=== PATIENT | male | born 1950 | race Caucasian/White ===

== ENCOUNTER 2017-12-02 00:22 | Inpatient (IN) | payer MEDICARE ==
[2017-12-02] VITALS (10 sets, daily range): BP systolic 79–148; BP diastolic 45–93
[~2017-12-02] VITALS: Ht 177.8 cm; Wt 73.0 kg
[~2017-12-02 00:22] MED LIST: ALDACTONE25 MG PO; ALTACE10 M1 PO; CIPROFLOXACIN500 M1 PO; HYDROCODONE-AP1 EAC6 PO; IMDUR 30 MG TAB30 M1 PO; LISINOPRIL20 MG PO; LOPRESSOR 50 MG50 M1 PO; PLAVIX 75 MG TA75 M1 PO; PLAVIX 75 MG TA75 MG PO; TOPROL XL50 MG PO
[2017-12-02] MEDS ORDERED: PACERONE 200 M200 M1 PO (00:37)
[2017-12-02] MEDS ORDERED: LISINOPRIL10 MG PO (00:37)
[2017-12-02] MEDS ORDERED: LASIX 20 MG TAB20 MG PO (00:37)
[2017-12-02] MEDS ORDERED: BAYER CHEWABLE81 MG PO (00:37)
[2017-12-02] MEDS ORDERED: KLOR-CON 1010 MEQ PO (00:38)
[2017-12-02] MEDS ORDERED: TOPROL XL25 MG PO (00:38)
[2017-12-02] MEDS ORDERED: CLARITIN10 MG PO (00:38)
[2017-12-02] MEDS ORDERED: BRILINTA90 MG PO (00:39)
[2017-12-02] MEDS ORDERED: VITAMIN B-1100 M1 PO (00:39)
[2017-12-02] MEDS ORDERED: Aldactone 25 MG PO (00:39)
[2017-12-02] MEDS ORDERED: CRESTOR20 MG PO (00:40)
[2017-12-02 01:00] LABS: URINE BILIRUBIN NEGATIVE (Negative); URINE BLOOD NEGATIVE (Negative); URINE CLARITY CLEAR; URINE COLOR YELLOW; URINE GLUCOSE-RANDOM NEGATIVE (Negative); URINE KETONES NEGATIVE (Negative); URINE LEUKOCYTES-REFLEX NEGATIVE (Negative); URINE NITRITE-REFLEX NEGATIVE (Negative); URINE PROTEIN NEGATIVE (Negative); URINE UROBILINOGEN 0.2 E.U./dl (0.2-1.0)
[2017-12-02 01:03] LABS: ABSOLUTE BASOPHILS 0.1 thou/uL (0.0-0.2); ABSOLUTE EOSINOPHILS 0.2 thou/uL (0.0-0.7); ABSOLUTE LYMPHOCYTES 2.1 thou/uL (0.8-5.3); ABSOLUTE MONOCYTES 0.4 thou/uL (0.0-1.2); ABSOLUTE NEUTROPHILS 5.7 thou/uL (1.6-8.1); BASOPHILS 0.8 %; EOSINOPHILS 2.3 %; HEMATOCRIT 33.3 % (42.0-52.0); HEMOGLOBIN 10.3 gm/dL (14.0-18.0); LYMPHOCYTES 24.8 %; MCH 29.7 pg (26.0-34.0); MCV 95.7 fL (80.0-100.0); MONOCYTES 5.1 %; MPV 7.7 fl. (7.2-11.1); NUCLEATED RBCS 0 /100WBC; PLATELET COUNT* 298 thou/uL (150-400); RBC 3.48 mil/uL (4.50-6.00); RDW-CV 18.1 % (10.5-14.5); WBC 8.6 thou/uL (4.0-11.0)
[2017-12-02 01:09] LABS: ANION GAP 14 mmol/L (7-16); BUN 29 mg/dL (7-18); CALCIUM 9.2 mg/dL (8.5-10.1); CHLORIDE 102 mmol/L (98-107); CO2 21 mmol/L (21-32); CREATININE 1.8 mg/dL (0.6-1.3); GLUCOSE 258 mg/dL (70-99); POTASSIUM 4.4 mmol/L (3.5-5.1); SODIUM 137 mmol/L (136-145)
[2017-12-02 01:12] LABS: INR 1.2; PROTIME 11.4 Seconds (9.20-11.50)
[2017-12-02 01:20] LABS: ALBUMIN 3.6 g/dL (3.4-5.0); ALKALINE PHOSPHATASE 141 U/L (46-116); NT-PRO BRAIN NAT PEPTIDE 10570 pg/mL (<300); SGOT 25 U/L (15-37); SGPT 31 U/L (30-65); TOTAL BILIRUBIN 0.4 mg/dL (<0.1-1.0); TOTAL PROTEIN 8.1 g/dL (6.4-8.2); TROPONIN-I LEVEL <0.06 ng/mL (<0.06)
[2017-12-02 02:21] LABS: BE -7.7 mmol/L (-2 to +3); HCO3 18.1 mmol/L (22.0-26.0); PCO2 37.8 mmHg (35.0-45.0); PO2 94.1 mmHg (75.0-100.0)
[2017-12-02 02:24] LABS: pH 7.297 (7.340-7.450)
[2017-12-02 09:15] LABS: HEMOGLOBIN 9.4 gm/dL (14.0-18.0); MCH 29.6 pg (26.0-34.0); MCHC 32.4 g/dL (28.0-37.0); MCV 91.4 fL (80.0-100.0); MPV 7.4 fl. (7.2-11.1); RBC 3.18 mil/uL (4.50-6.00); RDW-CV 17.9 % (10.5-14.5); WBC 12.9 thou/uL (4.0-11.0)
[2017-12-02 09:43] LABS: ALBUMIN 2.8 g/dL (3.4-5.0); CALCIUM 8.9 mg/dL (8.5-10.1); CREATININE 1.4 mg/dL (0.6-1.3); POTASSIUM 4.5 mmol/L (3.5-5.1); TOTAL BILIRUBIN 0.4 mg/dL (<0.1-1.0); TOTAL PROTEIN 6.2 g/dL (6.4-8.2)
--- NOTE | 2017-12-02 15:42 | 2DMMODE ---
[place] [address] 2 D/M-MODE ECHOCARDIOGRAM Name: FERMÍNLYUDMILA Room: [facility] IN [facility]#: [id number] Admission: 12/02/17 Attend Phys: Alireza Ma, Discharge: Date of : 54 Date of Service: 12/02/17 1542 Report #: [id number] THIS REPORT FOR: //name// APPROVED REPORT Study performed: 12/02/2017 09:53:41 EXAM: Comprehensive 2D, Doppler, and color-flow Echocardiogram Patient Location: In-Patient Room #: [facility] Status: routine BSA: 1.91 HR: 67 bpm BP: 135/83 mmHg Rhythm: NSR Other Information Study Quality: Good Indications Congestive Heart Failure Dyspnea 2D Dimensions LVEF(%): 17.60 (>50%) IVSd: 9.92 (7-11mm) LVOT Diam: 19.44 (18-24mm) LVDd: 63.12 mm PWd: 9.31 (7-11mm) LVDs: 57.99 (25-40mm) Aortic Root: 31.32 mm Bolden's LVEF: 17.60 % Volumes Left Atrial Volume (Systole) LA ESV Index: 43.00 mL/m2 Aortic Valve AoV Peak Sonu.: 1.08 m/s AO Peak Gr.: 4.63 mmHg LVOT Max P.70 mmHg AO Mean Gr.: 2.51 mmHg LVOT Mean P.20 mmHg LVOT Max V: 0.82 m/s AO V2 VTI: 17.92 cm LVOT Mean V: 0.50 m/s ANUJ (VTI): 2.14 cm2 LVOT V1 VTI: 12.92 [place] [address] 2 D/M-MODE ECHOCARDIOGRAM Name: LYUDMILA KOVACS Room: [address] IN .R.#: [id number] Admission: 12/02/17 Attend Phys: Alireza Ma, Discharge: Date of : 54 Date of Service: 12/02/17 1542 Report #: [id number] E/A Ratio: 1.60 MV Decel. Time: 200.98 ms MV E Max Sonu.: 0.68 m/s MV PHT: 58.28 ms MVA (PHT): 3.77 cm2 TDI E/Lateral E': 8.50 E/Medial E': 13.60 Medial E' Sonu.: 0.05 m/s Lateral E' Sonu.: 0.08 m/s Pulmonary Valve PV Peak Sonu.: 0.93 m/s PV Peak Gr.: 3.47 mmHg Tricuspid Valve TR Peak Gr.: 25.48 mmHg RVSP: 30.00 mmHg Left Ventricle Left ventricle is moderately dilated. There is severe global hypokinesis of the left ventricle. There is normal left ventricular wall thickness. Left ventricular systolic function is severely decreased. LVEF is 20-25%. Right Ventricle The right ventricle is normal size. The right ventricular systolic function is normal. Pacemaker lead is present in the right ventricle. Atria Left atrium is mildly dilated. The right atrium size is normal. Aortic Valve The aortic valve is normal in structure. No aortic regurgitation is present. There is no aortic valvular stenosis. Mitral Valve The mitral valve is normal in structure. Trace mitral regurgitation. No evidence of mitral valve stenosis. Tricuspid Valve The tricuspid valve is normal in structure. Mild tricuspid regurgitation. The RVSP is 30-35 mmHg. Pulmonic Valve The pulmonary valve is normal in structure. There is no pulmonic [place] [address] 2 D/M-MODE ECHOCARDIOGRAM Name: LYUDMILA KOVACS Room: [address] IN [facility]#: [id number] Admission: 12/02/17 Attend Phys: Alireza Ma, Discharge: Date of : 54 Date of Service: 12/02/17 1542 Report #: [id number] Great Vessels The aortic root is normal in size. IVC is normal in size and collapses with >50% inspiration Pericardium There is no pericardial effusion. <Conclusion> Left ventricle is moderately dilated. There is normal left ventricular wall thickness. Left ventricular systolic function is severely decreased. LVEF is 20-25%. The right ventricle is normal size. Left atrium is mildly dilated. The right atrium size is normal. The aortic valve is normal in structure. The mitral valve is normal in structure. Trace mitral regurgitation. The tricuspid valve is normal in structure. Mild tricuspid regurgitation. The RVSP is 30-35 mmHg. IVC is normal in size and collapses with >50% inspiration There is no pericardial effusion. There is severe global hypokinesis of the left ventricle. Pacemaker lead is present in the right ventricle. <ELECTRONICALLY SIGNED> By: Felix Han MD, FACC 12/02/17 1542 [id number] Felix Han MD, FACC /INF
--- NOTE | 2017-12-02 17:06 | EKG ---
[place] [address] ELECTROCARDIOGRAM REPORT Name: FERMÍN,LYUDMILA Heath Room: [address] ADM IN M.R.#: [id number] Admission: 12/02/17 Attend Phys: Alireza Ma MD Discharge: Date of : 54 Report #: [id number] THIS REPORT FOR: //name// [facility] ED Test Date: 2017-12-02 Test Time: 00:52:08 Pat Name: LYUDMILA KOVACS Department: Room: [facility] Gender: M [employer]: DEJAH : 1950 Requested By: Jenna De Leon Order Number: [id number] MD: Felix Han Measurements Intervals [place] Rate: 90 P: -89 NE: 185 QRS: 93 QRSD: 130 T: -83 QT: 391 QTc: 479 Interpretive Statements Probable slow atrial flutter with 2/1 block Nonspecific intraventricular conduction delay Abnormal T, consider ischemia, inferior leads Compared to ECG 03/12/2016 08:44:58 Intraventricular conduction delay now present T-wave abnormality now present Possible ischemia now present Sinus rhythm no longer present Atrial abnormality no longer present Left ventricular hypertrophy no longer present Myocardial infarct finding no longer present Electronically Signed On 12-02-2017 17:06:15 BELLY DANCER by Felix Han [email or web address] <ELECTRONICALLY SIGNED> By: Felix Han MD, [facility] 12/02/17 1706 Felix Han MD, [facility] /EPI
[2017-12-03] VITALS (17 sets, daily range): BP systolic 98–148; BP diastolic 53–96
[2017-12-03 05:15] LABS: CREATININE 1.7 mg/dL (0.6-1.3); POTASSIUM 3.8 mmol/L (3.5-5.1)
[2017-12-03 05:23] LABS: HEMATOCRIT 24.3 % (42.0-52.0); HEMOGLOBIN 8.1 gm/dL (14.0-18.0); MCH 30.6 pg (26.0-34.0); MCHC 33.4 g/dL (28.0-37.0); MCV 91.7 fL (80.0-100.0); MPV 7.4 fl. (7.2-11.1); NUCLEATED RBCS 0 /100WBC; PLATELET COUNT* 205 thou/uL (150-400); RBC 2.66 mil/uL (4.50-6.00); RDW-CV 17.9 % (10.5-14.5); WBC 8.4 thou/uL (4.0-11.0)
[2017-12-03 05:59] LABS: ABSOLUTE LYMPHOCYTES 0.1 thou/uL (0.8-5.3); ABSOLUTE NEUTROPHILS 8.3 thou/uL (1.6-8.1); HYPOCHROMASIA 1+; PLATELET ESTIMATE ADEQUATE
[2017-12-03 06:00] LABS: ANISOCYTOSIS 1+; POIKILOCYTOSIS 1+
[2017-12-03 08:03] LABS: AMYLASE 28 U/L (25-115); LIPASE 111 U/L (73-393)
--- NOTE | 2017-12-03 09:13 | CON ---
[address] [address] CONSULTATION Name: LYUDMILA KOVACS Room: [address] IN M.R.#: [id number] Admission: 12/02/17 Attend Phys: Alireza Ma MD Discharge: Date of : 54 Report #: [id number] THIS REPORT FOR: //name// CC: Alireza Card REASON FOR CONSULTATION: Acute respiratory failure. HISTORY OF PRESENT ILLNESS: The patient is a 67-year-old male patient, intubated, on sedation at the time of my evaluation, did not participate in the history. I did discuss with the nursing staff. I reviewed medical record. He is a 67-year-old male patient, presented to the ER with respiratory distress. Apparently, he lives by himself. He called EMS because of respiratory distress. Upon arrival to the ER, he was in significant distress. He was intubated and placed on the vent. When I saw him, he was on 80% FiO2. On reviewing the medical record, he indicated that he has history of alcohol abuse, smoking and his ejection fraction 25%. His chest x-ray in the ER demonstrated bilateral pulmonary edema. He was comfortable, sedated at the time of my evaluation, was not in distress, and apparently per the ER records, he had no fever or chills. He had no cough or sputum production. Otherwise, the history is limited. REVIEW OF SYSTEMS: The review of system at this point limited due to the patient's condition, unobtainable. PAST MEDICAL HISTORY: Per the record, congestive heart failure with ejection fraction 25%, history of pancreatitis, history of alcohol abuse, smoker. No mention of COPD. ALLERGIES: No known drug allergies per the record. MEDICATIONS: Apparently, he is on amiodarone, aspirin, Lasix, lisinopril, metoprolol, spironolactone, lovastatin. PAST MEDICAL AND SURGICAL HISTORY: As mentioned above, but noted that he has a pacemaker placed. SOCIAL HISTORY: Per the record, he is a smoker and drinks alcohol. PHYSICAL EXAMINATION: VITAL SIGNS: He was intubated, sedated at the time of my evaluation. His blood pressure 119/70, off vasopressors, pulse rate 69, afebrile. GENERAL: Elderly gentleman. Looks his stated age, in no distress. HEENT: Head is normocephalic, atraumatic. Pupils reactive to light. External ear looks healthy and normal. Oral cavity: Moist mucous membrane [place] [address] CONSULTATION Name: LYUDMILA KOVACS Room: [address] IN [facility]#: [id number] Admission: 12/02/17 Attend Phys: Alireza Ma MD Discharge: Date of : 54 Report #: [id number] CHEST: Diminished movement bilaterally with crackles, no wheezes. HEART: S1, S2, no murmur. ABDOMEN: Benign, soft, lax, nontender, positive bowel sounds. LOWER EXTREMITY: Trace edema. No calf swelling. SKIN: Normal for age and race. LYMPHATIC: No palpable lymph node. PSYCHIATRIC: Mood and affect could not be evaluated NEUROLOGIC: He is sedated. LABORATORY DATA: His ABGs at time of intubation was, 7.29/37/94, and this was done on 100% FIO2. His white blood count 12.9, hemoglobin 9.4 and platelets of 241. His INR of 1.2. D-dimer elevated. His creatinine is 1.8, potassium 4.4. His BNP was significantly elevated. His chest x-ray showed significant bilateral pulmonary edema. ET tube in good position. CURRENT MEDICATIONS: Include steroids, Lovenox prophylactic dose, Zosyn, propofol amiodarone, Zofran and nebulization treatments. IMPRESSION: 1. Acute hypoxic respiratory failure. 2. Likely chronic obstructive pulmonary disease. 3. Pulmonary infiltrate. 4. Congestive heart failure with depressed ejection fraction. 5. Pulmonary edema. At this point, continue to wean the oxygen down slowly as tolerated to keep his O2 saturation 90% and above. I agree with the steroids and scheduled nebulization treatment. We will do a followup chest x-ray for him. If his blood pressure tolerates, consider further diuresis, monitoring his electrolytes and kidney function. Continue current plan of sedation. Defer further management of the heart failure to Cardiology. Depending on the progress in the coming few days, we will decide the best time to start the weaning of the vent, although he is still on 80% FiO2. The clinical picture is highly consistent with pulmonary edema, although the D-dimer was elevated. I agree with the Doppler ultrasound. Thank you for the consult. We will follow along with you. <ELECTRONICALLY SIGNED> By: Sandra Lawson MD 12/03/17 0913 0931 [id number] Lawson MD /nt
[2017-12-03 10:43] LABS: BE -4.8 mmol/L (-2 to +3); HCO3 19.6 mmol/L (22.0-26.0); PCO2 33.8 mmHg (35.0-45.0); pH 7.382 (7.340-7.450)
[2017-12-03 12:14] LABS: PO2 41.7 mmHg (75.0-100.0)
[2017-12-03 15:15] LABS: INR 1.2; PROTIME 11.4 Seconds (9.20-11.50)
[2017-12-03 15:45] LABS: AMP/METHAMP Negative (Negative); BARBITURATES Negative (Negative); BENZODIAZEPINES Negative (Negative); COCAINE Negative (Negative); METHADONE Negative (Negative); OPIATES Negative (Negative); PCP Negative (Negative); THC Negative (Negative)
[2017-12-04] VITALS (12 sets, daily range): BP systolic 105–146; BP diastolic 59–86
[2017-12-04 05:32] LABS: ABSOLUTE BASOPHILS 0.1 thou/uL (0.0-0.2); ABSOLUTE LYMPHOCYTES 0.3 thou/uL (0.8-5.3); ABSOLUTE MONOCYTES 0.2 thou/uL (0.0-1.2); ABSOLUTE NEUTROPHILS 12.3 thou/uL (1.6-8.1); BASOPHILS 0.4 %; HEMATOCRIT 23.8 % (42.0-52.0); HEMOGLOBIN 7.9 gm/dL (14.0-18.0); LYMPHOCYTES 2.5 %; MCH 30.4 pg (26.0-34.0); MCHC 33.2 g/dL (28.0-37.0); MCV 91.7 fL (80.0-100.0); MONOCYTES 1.9 %; MPV 7.5 fl. (7.2-11.1); NUCLEATED RBCS 0 /100WBC; PLATELET COUNT* 209 thou/uL (150-400); POLYS 95.2 %; RDW-CV 18.1 % (10.5-14.5); WBC 12.9 thou/uL (4.0-11.0)
[2017-12-04 05:38] LABS: ALBUMIN 2.5 g/dL (3.4-5.0); CALCIUM 7.4 mg/dL (8.5-10.1); CREATININE 1.4 mg/dL (0.6-1.3); MAGNESIUM 2.6 mg/dL (1.8-2.4); POTASSIUM 3.3 mmol/L (3.5-5.1); TOTAL BILIRUBIN 0.4 mg/dL (<0.1-1.0)
[2017-12-04 17:23] LABS: BE 2.3 mmol/L (-2 to +3); HCO3 26.3 mmol/L (22.0-26.0); PCO2 38.2 mmHg (35.0-45.0); PO2 125.5 mmHg (75.0-100.0); pH 7.456 (7.340-7.450)
[2017-12-05] VITALS (10 sets, daily range): BP systolic 91–143; BP diastolic 51–85
[2017-12-05 05:40] LABS: ABSOLUTE LYMPHOCYTES 0.3 thou/uL (0.8-5.3); ABSOLUTE MONOCYTES 0.4 thou/uL (0.0-1.2); ABSOLUTE NEUTROPHILS 12.3 thou/uL (1.6-8.1); BASOPHILS 0.1 %; HEMATOCRIT 27.8 % (42.0-52.0); LYMPHOCYTES 2.4 %; MCH 29.6 pg (26.0-34.0); MCHC 32.5 g/dL (28.0-37.0); MCV 91.2 fL (80.0-100.0); MONOCYTES 2.8 %; MPV 7.4 fl. (7.2-11.1); NUCLEATED RBCS 0 /100WBC; PLATELET COUNT* 230 thou/uL (150-400); POLYS 94.7 %; RBC 3.05 mil/uL (4.50-6.00); RDW-CV 18.8 % (10.5-14.5)
[2017-12-05 05:48] LABS: ALBUMIN 2.7 g/dL (3.4-5.0); CREATININE 1.4 mg/dL (0.6-1.3); MAGNESIUM 2.7 mg/dL (1.8-2.4); PHOSPHORUS* 3.3 mg/dL (2.5-4.9); POTASSIUM 3.5 mmol/L (3.5-5.1); TOTAL BILIRUBIN 0.5 mg/dL (<0.1-1.0); TOTAL PROTEIN 6.3 g/dL (6.4-8.2)
[2017-12-06 06:30] LABS: HEMATOCRIT 29.7 % (42.0-52.0); HEMOGLOBIN 9.3 gm/dL (14.0-18.0); MCH 29.1 pg (26.0-34.0); MCHC 31.2 g/dL (28.0-37.0); MCV 93.1 fL (80.0-100.0); MPV 7.3 fl. (7.2-11.1); NUCLEATED RBCS 0 /100WBC; PLATELET COUNT* 241 thou/uL (150-400); RDW-CV 18.2 % (10.5-14.5)
[2017-12-06 06:50] LABS: PREALBUMIN 30.8 mg/dL (18.0-35.7)
[2017-12-06 07:00] LABS: ABSOLUTE LYMPHOCYTES 1.1 thou/uL (0.8-5.3); ABSOLUTE MONOCYTES 0.1 thou/uL (0.0-1.2); ABSOLUTE NEUTROPHILS 9.8 thou/uL (1.6-8.1)
[2017-12-06 07:01] LABS: ANISOCYTOSIS 1+; HYPOCHROMASIA 1+; POIKILOCYTOSIS 1+; POLYCHROMASIA 1+
[2017-12-06 07:29] LABS: CALCIUM 8.4 mg/dL (8.5-10.1); CREATININE 1.3 mg/dL (0.6-1.3); MAGNESIUM 3.1 mg/dL (1.8-2.4); POTASSIUM 3.5 mmol/L (3.5-5.1); TOTAL BILIRUBIN 0.6 mg/dL (<0.1-1.0); TOTAL PROTEIN 6.6 g/dL (6.4-8.2)
[2017-12-06 08:34] VITALS: BP 143/85
[2017-12-06 12:00] VITALS: BP 149/98
[2017-12-06 20:00] VITALS: BP 125/85
[2017-12-07] VITALS: BP 129/81
[2017-12-07 04:12] VITALS: BP 132/83
[2017-12-07 04:45] LABS: ABSOLUTE LYMPHOCYTES 0.7 thou/uL (0.8-5.3); ABSOLUTE MONOCYTES 0.5 thou/uL (0.0-1.2); ABSOLUTE NEUTROPHILS 7.4 thou/uL (1.6-8.1); BASOPHILS 0.3 %; HEMATOCRIT 26.1 % (42.0-52.0); HEMOGLOBIN 8.6 gm/dL (14.0-18.0); LYMPHOCYTES 8.1 %; MCH 29.8 pg (26.0-34.0); MCHC 32.8 g/dL (28.0-37.0); MCV 90.9 fL (80.0-100.0); MPV 7.3 fl. (7.2-11.1); NUCLEATED RBCS 0 /100WBC; PLATELET COUNT* 200 thou/uL (150-400); POLYS 85.6 %; RBC 2.87 mil/uL (4.50-6.00); WBC 8.6 thou/uL (4.0-11.0)
[2017-12-07 05:02] LABS: ALBUMIN 2.7 g/dL (3.4-5.0); CALCIUM 7.9 mg/dL (8.5-10.1); CREATININE 1.4 mg/dL (0.6-1.3); POTASSIUM 3.5 mmol/L (3.5-5.1); TOTAL BILIRUBIN 0.5 mg/dL (<0.1-1.0)
[2017-12-07 09:45] VITALS: BP 113/75
[2017-12-07 12:16] VITALS: BP 127/81
[2017-12-07 14:10] VITALS: BP 127/81
[2017-12-07 15:07] VITALS: BP 127/81
[2017-12-07] MEDS ORDERED: PREDNISONE 10 M10 MG PO (15:16)
--- NOTE | 2017-12-08 11:02 | CON ---
[address] [address] CONSULTATION Name: LYUDMILA KOVACS Room: [address] IN M.R.#: [id number] Admission: 12/02/17 Attend Phys: Alireza Ma MD Discharge: 12/07/17 Date of : 54 Report #: [id number] THIS REPORT FOR: //name// CC: Alireza Ma Primary Care Physician Reji Card DICTATED BY: Mariaa Castro [facility] DATE OF SERVICE: 12/03/2017 Please note at the time of this dictation, the patient was seen and physically examined by myself. REASON FOR CONSULTATION: Drop in hemoglobin and positive Hemoccult. HISTORY OF PRESENT ILLNESS: This is a 67-year-old male who is much older than stated age that came in on the evening of the in some respiratory distress and when he arrived, he was placed on BiPAP and then eventually intubated due to his respiratory distress. He was stating that prior to coming in, he was having a lot of shortness of air. He was also complaining of some chest pain and midepigastric pain, which he states he took several aspirin, thinking that he was having a heart attack that prompted him to come in. He has had a history of a colonoscopy, last one being in [address] Rahman that is noted. The patient underwent a colonoscopy by Dr. Rahman in which it revealed a rectal mass 10-12 cm from the anal verge and a rectal polyp, a transverse polyp and hepatic flexure polyp. 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 Chinedu Yost for surgical consultation regarding removal of this mass. He is unclear if he has had a followup colonoscopy done in the past as well. He does not recall ever having an upper scope done at the [facility]. ALLERGIES: No known drug allergies. MEDICATIONS: From home include Crestor, Brilinta, vitamin B, Aldactone, potassium chloride, Toprol, Claritin, Zestril, Lasix, and amiodarone. PAST MEDICAL HISTORY: Atrial fibrillation, hypertension, alcoholic pancreatitis, coronary artery disease with stent placement, ischemic cardiomyopathy with EF of 25%, chronic systolic heart failure, intussusception in his colon polyps. PAST SURGICAL HISTORY: Again, colon resection, partial, due to mass; hernia repair; cholecystectomy. FAMILY HISTORY: Negative for any [place] [address] CONSULTATION Name: LYUDMILA KOVACS Ivana Room: [address]#: [id number] Admission: 12/02/17 Attend Phys: Alireza Ma MD Discharge: 12/07/17 Date of : 54 Report #: [id number] SOCIAL HISTORY: Significant for alcohol use, 8 beers a day. Tobacco use. Denies any illegal drug use at this time. REVIEW OF SYSTEMS: Twelve-point review of systems is essentially negative except what is mentioned in the HPI. PHYSICAL EXAMINATION: VITAL SIGNS: Temperature 37.3, 94 pulse, 16 respirations, 109/55 blood pressure. HEART: Regular rate and rhythm. LUNGS: Clear, slightly diminished with some expiratory wheezes noted. ABDOMEN: Soft, positive bowel sounds in all 4 quadrants with no masses or tenderness noted with some slight epigastric tenderness noted to touch. IMAGING: Abdominal x-ray: Normal gas pattern. LABORATORY DATA: Hemoglobin on admission was 10.3, it is noted in the past he has been up around 12 and currently he is down to 8.1; hematocrit 24.3; white count is 8.4; platelets 205. Sodium 138, potassium 3.8, chloride 104, CO2 of 23, BUN is 28, creatinine is 1.7, GFR is 41. His BNP is 6732. Percentage sat is 4, iron is 15. TSH is 4.3. Ferritin is 48. B12 is 330. Folate is 21.7. His PT is 11.4 and 1.2. IMPRESSION: 1. Acute anemia. 2. Positive occult blood. 3. Anticoagulant therapy, Brilinta. 4. History of alcoholic pancreatitis. 5. History of alcohol misuse. 6. History of colon polyps. PLAN: 1. EGD tomorrow with Dr. James. Recommended a colonoscopy as well, but he is reluctant to want to do a prep. 2. Protonix drip. 3. Hold Brilinta. 4. Labs; CBC, CMP tomorrow in the a.m. with ammonia pending. 5. Further recommendations to be made once the procedure has been performed. Thank you for allowing us to participate in this patient's care. Please do not hesitate to call with any questions in regard to this consult. <ELECTRONICALLY SIGNED> By: Neftali Bradley DO 12/08/17 1102 1602 [id number] Bradley DO /nt
--- NOTE | 2017-12-12 08:58 | CON ---
[address] [address] CONSULTATION Name: FERMÍNLYUDMILA Room: [address] IN M.R.#: [id number] Admission: 12/02/17 Attend Phys: Alireza Ma MD Discharge: 12/07/17 Date of : 54 Report #: [id number] THIS REPORT FOR: //name// CC: Alireza Ma MD [facility] DATE OF SERVICE: 12/03/2017 REFERRING PHYSICIAN: Alireza Ma MD I have seen and examined the patient, and he agreed with plans that have been outlined by our nurse practitioner, Mariaa Castro. The patient has had some problems with associated melena and anemia with epigastric pain. He is on chronic anticoagulation and has had previous colon resection for a large polyp in 2005. He states he has not had a colonoscopy since that time. For this reason, I recommend he proceed with both upper and lower endoscopy tomorrow afternoon. I will make further recommendations thereafter. <ELECTRONICALLY SIGNED> By: Neftali Bradley DO 12/12/17 0858 1058 1745Neftali Bradley DO /nt
== END 2017-12-07 17:01 | disposition home health service (06) | DRG 208 ==
LOC: M.ERS 00:22 → M.ICU 02:44 → M.TBA-ER 02:44 → M.ICU 03:07 → M.2W 12-06 17:05
PROVIDERS: Emergency Medicine; Internal Medicine; Internal Medicine Critical Care Medicine; Internal Medicine Pulmonary Disease; ADMIT Internal Medicine
PROC: 5A1945Z Respiratory Ventilation, 24-96 Consecutive Hours (ICD-10-PCS; principal; 2017-12-02)
PROC: 0BH17EZ Insertion of Endotracheal Airway into Trachea, Via Natural or Artificial Opening (ICD-10-PCS; principal; 2017-12-02)
PROC: B24BZZ4 Ultrasonography of Heart with Aorta, Transesophageal (ICD-10-PCS; principal; 2017-12-02)
PROC: 05HY33Z Insertion of Infusion Device into Upper Vein, Percutaneous Approach (ICD-10-PCS; principal; 2017-12-02)
PROC: 5A09457 Assistance with Respiratory Ventilation, 24-96 Consecutive Hours, Continuous Positive Airway Pressure (ICD-10-PCS; 2017-12-04)
DX: J69.0 Pneumonitis due to inhalation of food and vomit (principal); N17.0 Acute kidney failure with tubular necrosis; J96.01 Acute respiratory failure with hypoxia; I50.23 Acute on chronic systolic (congestive) heart failure; G93.40 Encephalopathy, unspecified; E87.0 Hyperosmolality and hypernatremia; J44.1 Chronic obstructive pulmonary disease with (acute) exacerbation; I10 Essential (primary) hypertension; F17.210 Nicotine dependence, cigarettes, uncomplicated; I25.10 Atherosclerotic heart disease of native coronary artery without angina pectoris; I25.5 Ischemic cardiomyopathy; E11.9 Type 2 diabetes mellitus without complications; D50.9 Iron deficiency anemia, unspecified; F10.20 Alcohol dependence, uncomplicated; Z86.74 Personal history of sudden cardiac arrest; Z95.5 Presence of coronary angioplasty implant and graft; Z86.010 Personal history of colon polyps; Z90.49 Acquired absence of other specified parts of digestive tract; Z79.82 Long term (current) use of aspirin; Z79.899 Other long term (current) drug therapy; Z95.810 Presence of automatic (implantable) cardiac defibrillator; Z23 Encounter for immunization

== ENCOUNTER 2018-06-12 14:39 | Inpatient (IN) | payer MEDICARE, MEDICAID ==
[~2018-06-12] VITALS: Ht 175.3 cm; Wt 71.9 kg
[~2018-06-12 14:39] MED LIST changes: +Aldactone 25 MG PO; +BAYER CHEWABLE81 MG PO; +BRILINTA90 MG PO; +CLARITIN10 MG PO; +CRESTOR20 MG PO; +KLOR-CON 1010 MEQ PO; +LASIX 20 MG TAB20 MG PO; +LISINOPRIL10 MG PO; +PACERONE 200 M200 M1 PO; +PREDNISONE 10 M10 MG PO; +TOPROL XL25 MG PO; +VITAMIN B-1100 M1 PO
[2018-06-12 14:48] VITALS: BP 122/71
[2018-06-12] MEDS ORDERED: ENTRESTO 24 MG1 EACH PO (15:00)
[2018-06-12 15:06] LABS: HEMATOCRIT 23.7 % (42.0-52.0); HEMOGLOBIN 7.4 gm/dL (14.0-18.0); MCH 25.2 pg (26.0-34.0); MCHC 31.3 g/dL (28.0-37.0); MCV 80.6 fL (80.0-100.0); MPV 7.2 fl. (7.2-11.1); NUCLEATED RBCS 2 /100WBC; PLATELET COUNT* 361 thou/uL (150-400); RBC 2.94 mil/uL (4.50-6.00); RDW-CV 18.3 % (10.5-14.5); WBC 7.6 thou/uL (4.0-11.0)
[2018-06-12 15:17] LABS: CALCIUM 8.2 mg/dL (8.5-10.1); CREATININE 2.6 mg/dL (0.6-1.3); POTASSIUM 3.9 mmol/L (3.5-5.1)
[2018-06-12 15:29] LABS: ALBUMIN 2.9 g/dL (3.4-5.0); TOTAL BILIRUBIN 0.8 mg/dL (<0.1-1.0); TOTAL PROTEIN 8.1 g/dL (6.4-8.2)
[2018-06-12 15:34] LABS: ABSOLUTE LYMPHOCYTES 0.4 thou/uL (0.8-5.3); ABSOLUTE MONOCYTES 0.6 thou/uL (0.0-1.2); ABSOLUTE NEUTROPHILS 6.6 thou/uL (1.6-8.1); PLATELET ESTIMATE ADEQUATE
[2018-06-12 15:35] LABS: ANISOCYTOSIS 1+; HYPOCHROMASIA 1+; POLYCHROMASIA Occasional
[2018-06-12 18:13] VITALS: BP 122/72
[2018-06-12 18:20] VITALS: BP 118/48
[2018-06-12 20:11] VITALS: BP 122/69
[2018-06-12 23:23] VITALS: BP 110/67
[2018-06-13] VITALS: BP 110/67
[2018-06-13 04:00] VITALS: BP 107/56
[2018-06-13 08:00] VITALS: BP 101/54
[2018-06-13 08:45] LABS: HEMATOCRIT 23.7 % (42.0-52.0); HEMOGLOBIN 7.3 gm/dL (14.0-18.0)
[2018-06-13 09:30] LABS: URINE BILIRUBIN NEGATIVE (Negative); URINE BLOOD TRACE (Negative); URINE CLARITY CLEAR; URINE COLOR YELLOW; URINE GLUCOSE-RANDOM NEGATIVE (Negative); URINE KETONES NEGATIVE (Negative); URINE LEUKOCYTES-REFLEX NEGATIVE (Negative); URINE NITRITE-REFLEX NEGATIVE (Negative); URINE PROTEIN TRACE (Negative); URINE UROBILINOGEN 0.2 E.U./dl (0.2-1.0)
[2018-06-13 09:33] LABS: ALBUMIN 2.4 g/dL (3.4-5.0); CALCIUM 7.4 mg/dL (8.5-10.1); CREATININE 2.2 mg/dL (0.6-1.3); POTASSIUM 3.1 mmol/L (3.5-5.1); TOTAL BILIRUBIN 0.8 mg/dL (<0.1-1.0); TOTAL PROTEIN 6.8 g/dL (6.4-8.2)
--- NOTE | 2018-06-13 10:45 | EKG ---
[place] [address] ELECTROCARDIOGRAM REPORT Name: FERMÍN,LYUDMILA Heath Room: [address] ADM IN .R.#: [id number] Admission: 06/12/18 Attend Phys: Erna Miner Discharge: Date of : 54 Report #: [id number] THIS REPORT FOR: //name// [facility] ED Test Date: 2018-06-12 Test Time: 17:56:46 Pat Name: LYUDMILA KOVACS Department: Room: [facility] Gender: [place]: Karthik DOMINGUEZ : 1950 Requested By: Tita Reveles Order Number: [id number] MD: Gagandeep Siegel Measurements Intervals [place] Rate: 60 P: WA: 137 QRS: 76 QRSD: 117 T: 146 QT: 511 QTc: 511 Interpretive Statements Atrial-paced complexes Nonspecific intraventricular conduction delay Borderline low voltage, extremity leads Borderline repolarization abnormality Compared to ECG 12/02/2017 00:52:08 T-wave abnormality no longer present Possible ischemia no longer present Electronically Signed On 06-13-2018 10:45:11 CDT by Gagandeep Siegel [email or web address] <ELECTRONICALLY SIGNED> By: Gagandeep Siegel MD, FACC 06/13/18 1045 1756 1756 Gagandeep Siegel MD, FAC /EPI
[2018-06-13 16:00] VITALS: BP 120/66
[2018-06-13 20:14] VITALS: BP 106/61
[2018-06-14 00:23] VITALS: BP 107/74
[2018-06-14 04:45] VITALS: BP 121/66
[2018-06-14 08:20] VITALS: BP 96/60
[2018-06-14 10:18] VITALS: BP 106/57
[2018-06-14 10:53] VITALS: BP 106/57
--- NOTE | 2018-07-03 13:22 | CON ---
[address] [address] CONSULTATION Name: LYUDMILA KOVACS Room: [address] IN M.R.#: [id number] Admission: 06/12/18 Attend Phys: Erna Miner Discharge: 06/14/18 Date of : 54 Report #: [id number] THIS REPORT FOR: //name// CC: FAM unknown [facility] Casey Arevalo HISTORY OF PRESENT ILLNESS: This is a pleasant 67-year-old male with several past medical problems including COPD, CHF, chronic pancreatitis, past history of pancreatic surgery, diabetes, was presenting with acute onset abdominal pain. The patient reports the pain is located in the upper abdomen and it began yesterday. In an attempt to alleviate the pain, the patient took both Maalox and MiraLax, both of which did not do much and the pain subsequently became worse. The patient then presented to the ER for further evaluation. The patient reports that over the course of his admission, his pain has subsequently reduced and currently he has no pain. When the pain was present, it was located in the epigastrium, was sharp, nonradiating, not associated with any nausea or vomiting. The patient does report being unable to pass stool for the last few days. The patient reports he quit smoking a year back, but continues to drink alcohol 1-2 drinks per week. PAST MEDICAL HISTORY: The patient was previously seen by our service in November for melena when he presented with acute respiratory failure. The patient was unstable at that time and endoscopic interventions had to be deferred. PAST SURGICAL HISTORY: The patient reports remote history of distal pancreatectomy for pancreatitis and pseudocyst formation. FAMILY HISTORY: Reviewed and not significant. SOCIAL HISTORY: The patient, as mentioned before, was a former smoker, quit about a year back. Reports occasional alcohol use every week. Denies recreational drug use. REVIEW OF SYSTEMS: A comprehensive 10-point review of systems was negative except for what is mentioned in the HPI. PHYSICAL EXAMINATION: VITAL SIGNS: Temperature 36.7, pulse rate 63, respirations 17, blood pressure 120/66, pulse ox 100% on room air. GENERAL: The patient is alert, awake, oriented x 3. HEENT: Pupils are equal, round, reactive to light and accommodation. Mucous membranes are moist. There is no congestion. NECK: Supple. There [place] [address] CONSULTATION Name: FERMÍNLYUDMILA ALEJANDRO Ivana Room: [address]#: [id number] Admission: 06/12/18 Attend Phys: Erna Miner Discharge: 06/14/18 Date of : 54 Report #: [id number] CARDIOVASCULAR: Rate and rhythm regular, S1, S2 present. LUNGS: Clear to auscultation bilaterally. ABDOMEN: Soft. There is no distention, no tenderness. Bowel sounds are present. EXTREMITIES: Warm and well perfused. There is no pitting edema. INTEGUMENTARY: There are no rashes. NEUROLOGIC: There is no focal neurological deficit. LABORATORY DATA: Hemoglobin 7.4, hematocrit 23.7, platelet count 361, WBC count 7.6. Sodium 141, potassium 3.1, chloride 105, bicarbonate 26, BUN 35, creatinine 2.2, AST 101, ALT 129, alkaline phosphatase is 225, total bilirubin 0.2, lipase 349. IMAGING: CT abdomen and pelvis without contrast, CT demonstrates increasing central cystic changes within the pancreatic head, raising concern for developing pseudocyst or cystic tumor. This is producing increasing compression and obstruction of the pancreatic duct with resulting dilation of the duct. The patient has undergone previous removal of distal pancreatic body and tail. Liver appears intact. There is increased dilation of bile duct, but intrahepatic ducts appear normal. ASSESSMENT AND PLAN: This is a pleasant 67-year-old male with past medical history of recurrent episodes of pancreatitis, pancreatic pseudocyst and pancreatic surgery, and also history of congestive heart failure and chronic obstructive pulmonary disease, who is presenting for evaluation of one acute episode of abdominal pain. The abdominal pain appears to be self-limited, and I did not suspect it is related to any episode of acute pancreatitis at this time. However, the CT does demonstrate increased dilation of both the pancreatic duct and the bile duct, and this raises a concern for presence of pancreatic malignancy although this can also be seen with a chronic stricture seen in chronic pancreatitis. However, the next prudent step would be to perform endoscopic ultrasound with or without an ERCP for evaluation of the pancreatic and the bile ducts. The patient appears concerned about proceeding in this direction as he is on anticoagulation and has CHF and COPD. I definitely share the patient's concern for cardiovascular risk stratification for the EUS and ERCP. Therefore, I recommended that the patient visit his veneer supervisor who can determine the appropriate course of action and duration for withholding anticoagulation. Once these are determined, we can set up an outpatient EUS and ERCP for further evaluation of the changes in the pancreatic head. <ELECTRONICALLY SIGNED> By: Da Gage MD 07/03/18 1322 1719 [id number] Gage MD /nt
== END 2018-06-14 11:31 | disposition home or self-care (01) | DRG 438 ==
LOC: M.ERS 14:39 → M.2W 16:48 → M.TBA-ER 16:48 → M.2W 18:22
PROVIDERS: Nurse Practitioner Family; ADMIT Internal Medicine
DX: K85.20 Alcohol induced acute pancreatitis without necrosis or infection (principal); N17.0 Acute kidney failure with tubular necrosis; I50.22 Chronic systolic (congestive) heart failure; J44.9 Chronic obstructive pulmonary disease, unspecified; I25.10 Atherosclerotic heart disease of native coronary artery without angina pectoris; E11.9 Type 2 diabetes mellitus without complications; D64.9 Anemia, unspecified; Z90.410 Acquired total absence of pancreas; Z87.891 Personal history of nicotine dependence; Z79.01 Long term (current) use of anticoagulants; Z90.49 Acquired absence of other specified parts of digestive tract; Z79.82 Long term (current) use of aspirin; Z79.899 Other long term (current) drug therapy; Z95.810 Presence of automatic (implantable) cardiac defibrillator

== ENCOUNTER 2018-06-30 14:29 | Inpatient (IN) | payer MEDICARE ==
[~2018-06-30] VITALS: Ht 175.3 cm; Wt 66.2 kg
[~2018-06-30 14:29] MED LIST changes: +ENTRESTO 24 MG1 EACH PO
[2018-06-30 14:44] VITALS: BP 144/89
[2018-06-30 15:03] LABS: URINE BILIRUBIN NEGATIVE (Negative); URINE BLOOD NEGATIVE (Negative); URINE CLARITY CLEAR; URINE COLOR YELLOW; URINE GLUCOSE-RANDOM NEGATIVE (Negative); URINE KETONES NEGATIVE (Negative); URINE LEUKOCYTES-REFLEX NEGATIVE (Negative); URINE NITRITE-REFLEX NEGATIVE (Negative); URINE PROTEIN 2+ (Negative); URINE UROBILINOGEN 0.2 E.U./dl (0.2-1.0)
[2018-06-30 15:11] LABS: AMP/METHAMP Negative (Negative); BARBITURATES Negative (Negative); BENZODIAZEPINES Negative (Negative); COCAINE Negative (Negative); METHADONE Negative (Negative); OPIATES Negative (Negative); PCP Negative (Negative); THC Negative (Negative)
[2018-06-30 15:13] LABS: HEMATOCRIT 30.9 % (42.0-52.0); HEMOGLOBIN 9.5 gm/dL (14.0-18.0); MCH 24.7 pg (26.0-34.0); MCHC 30.7 g/dL (28.0-37.0); MCV 80.4 fL (80.0-100.0); NUCLEATED RBCS 0 /100WBC; PLATELET COUNT* 334 thou/uL (150-400); RBC 3.85 mil/uL (4.50-6.00); RDW-CV 19.4 % (10.5-14.5); WBC 9.3 thou/uL (4.0-11.0)
[2018-06-30 15:16] LABS: SQUAMOUS 0-3 Few /LPF (0-3)
[2018-06-30 15:17] LABS: BACTERIA-REFLEX None Seen /HPF (None Seen); CRYSTALS None Seen /LPF (None Seen); HYALINE CASTS 0-3 Few /LPF (None Seen); MUCUS 4-6 Moderate strn/LPF (None Seen); URINE RBC None Seen /HPF (0-2); URINE WBC-REFLEX None Seen /HPF (0-5)
[2018-06-30 15:38] LABS: ABSOLUTE EOSINOPHILS 0.7 thou/uL (0.0-0.7); ABSOLUTE LYMPHOCYTES 0.7 thou/uL (0.8-5.3); ABSOLUTE MONOCYTES 0.5 thou/uL (0.0-1.2); ABSOLUTE NEUTROPHILS 7.5 thou/uL (1.6-8.1); ANISOCYTOSIS 1+; HYPOCHROMASIA 1+; MICROCYTES 1+; PLATELET ESTIMATE ADEQUATE
[2018-06-30 15:39] LABS: CALCIUM 8.6 mg/dL (8.5-10.1); CREATININE 1.7 mg/dL (0.6-1.3); POTASSIUM 3.4 mmol/L (3.5-5.1)
[2018-06-30 15:45] LABS: ALBUMIN 2.8 g/dL (3.4-5.0); TOTAL BILIRUBIN 0.9 mg/dL (<0.1-1.0); TOTAL PROTEIN 8.1 g/dL (6.4-8.2)
[2018-06-30 17:13] VITALS: BP 123/70
[2018-06-30 17:15] VITALS: BP 131/71
[2018-06-30] MEDS ORDERED: LASIX 20 MG TAB20 MG PO (18:14)
--- NOTE | 2018-06-30 18:49 | NUR ---
PATIENT ADMITTED TO ROOM 105. ALERT AND ORIENTED X 4. RATING ABD PAIN A /10. DR. RAYGOZA NOTIFIED FOR PAIN MEDICATION, PRN MORPHINE ORDERED AND GIVEN. IVF INFUSING AT 200MLS/HR. FALL RISK PROTOCOL IN PLACE, HOME WALKER IN ROOM. PATIENT HOME MEDICATION BOTTLE X 1 SENT TO PHARMACY. PATIENT STATED HE WOULD WEAR SCD'S AT BEDTIME. NPO. ORIENTED TO CALL LIGHT. CALL LIGHT WITHIN REACH, WILL CONTINUE TO MONITOR.
[2018-06-30 20:30] VITALS: BP 101/61
[2018-06-30 23:56] VITALS: BP 109/60
[2018-07-01 04:35] LABS: HEMATOCRIT 26.1 % (42.0-52.0); HEMOGLOBIN 8.1 gm/dL (14.0-18.0); MCHC 31.1 g/dL (28.0-37.0); MCV 80.5 fL (80.0-100.0); MPV 7.2 fl. (7.2-11.1); RBC 3.24 mil/uL (4.50-6.00); RDW-CV 19.4 % (10.5-14.5); WBC 7.3 thou/uL (4.0-11.0)
--- NOTE | 2018-07-01 04:37 | NUR ---
PATIENT HAS REMAINED ALERT AND ORIENTED X 4 THROUGHOUT THE SHIFT AND RESTING QUIETLY ON HOURLY ROUNDS. UP WITH SBA AND WALKER. STOOD AT BEDSIDE TO VOID. IVF'S PER ORDERS. MEDICATED X 1 FOR PAIN TO GOOD EFFECT. VITAL SIGNS STABLE. CONTINUE TO MONITOR.
[2018-07-01 05:00] LABS: CALCIUM 7.5 mg/dL (8.5-10.1); CREATININE 1.5 mg/dL (0.6-1.3); MAGNESIUM 2.8 mg/dL (1.8-2.4); POTASSIUM 3.1 mmol/L (3.5-5.1); TOTAL BILIRUBIN 0.8 mg/dL (<0.1-1.0); TOTAL PROTEIN 6.3 g/dL (6.4-8.2)
[2018-07-01 08:01] VITALS: BP 112/57
--- NOTE | 2018-07-01 09:11 | NUR ---
A/O, DENIES PAIN, NO DISTRESS NOTED, SEE ASSESSMENT FOR DETAILS. VSS, NEW ORDERS FOR FLUID FLOW RATE NOTED, COMPLIANT WITH MEDS AND CARES, USES CALL LIGHT APPROPRIATELY, CARE PLAN REVIEWED WITH PATIENT, DENIES QUESTIONS AT THIS TIME. CONT POC.
[2018-07-01 16:32] VITALS: BP 118/73
--- NOTE | 2018-07-01 18:31 | NUR ---
PACEMAKER INTERROGATED TODAY AT BEDSIDE, CARDIOLOGY RECORDS OBTAINED FROM [facility], IN CHART, ADVANCED DIET CAROL ANN WELL. NO GI ROUNDS COMPLETED THIS SHIFT. AWAITING CARDIOLOGY AND GI CLEARANCE FOR EUS, POSSIBLY OUTPT. NO DISTRESS NOTED, RELAXING IN BED AND WATCHING TELEVISION, MYLANTA GIVEN FOR NO BM IN 48 HOURS.
[2018-07-01 20:00] VITALS: BP 101/74
[2018-07-02 04:11] LABS: HEMATOCRIT 26.5 % (42.0-52.0); HEMOGLOBIN 8.3 gm/dL (14.0-18.0); MCH 24.9 pg (26.0-34.0); MCHC 31.3 g/dL (28.0-37.0); MCV 79.6 fL (80.0-100.0); MPV 7.1 fl. (7.2-11.1); RBC 3.33 mil/uL (4.50-6.00); RDW-CV 19.3 % (10.5-14.5); WBC 7.3 thou/uL (4.0-11.0)
[2018-07-02 04:20] LABS: CALCIUM 7.3 mg/dL (8.5-10.1); CREATININE 1.3 mg/dL (0.6-1.3); MAGNESIUM 2.3 mg/dL (1.8-2.4); POTASSIUM 3.1 mmol/L (3.5-5.1)
--- NOTE | 2018-07-02 04:53 | NUR ---
PATIENT AWAKE MOST OF THE NIGHT VOIDING PER URINAL. PT GIVEN FIRST DOSE OF LASIX LATE YESTERDAY. DR MESSER CALLED AND ASKED IF IT WAS OK TO GIVE SECOND DOSE OF LASIX AT 2100 OR IF IT SHOULD BE GIVEN LATER OR HELD. ORDER GIVEN TO GIVE 2100 DOSE OF LASIX AT SCHEDULED TIME. PT UP TO BATHROOM TWICE FOR BOWEL MOVEMENT. PT USES CALL LIGHT APPROPRIATELY FOR ASSISTANCE TO STAND TO VOID AND UP WITH GAIT BELT AND WALKER TO BATHROOM. PT DENIES PAIN/NAUSEA DURING THIS SHIFT. FLUIDS INFUSING PER DR ORDER. FREQUENTLY USED ITEMS AND CALL LIGHT WITHIN REACH. SIDERAILS UPX4 AND BED ALARM ON. WILL CONTINUE TO MONITOR.
[2018-07-02 08:28] VITALS: BP 107/57
[2018-07-02] MEDS ORDERED: TRAMADOL 50 MG50 MG PO (09:44)
[2018-07-02] MEDS ORDERED: MELATONIN5 M1 PO (09:46)
[2018-07-02] MEDS ORDERED: BANOPHEN25 MG PO (09:46)
[2018-07-02 13:07] VITALS: BP 107/57
--- NOTE | 2018-07-02 13:53 | NUR ---
I have reviewed and agree with the reassessment performed by student nurse Odalis Sifuentes.
--- NOTE | 2018-07-02 15:50 | NUR ---
PT.RESTING. CM INTRODUCED ROLE OF CM. HE KEPT HIS EYES CLOSED DURING CONVERSATION BUT DID ANSWER QUESTIONS. HE IS AWARE OF DISCHARGE FOR TODAY. HE SAID HE DROVE HIMSELF HERE AND WILL DRIVE HIMSELF HOME. HE USES A WALKER. HE SAID HE IS INDEPENDENT AT HOME. COOKS OR MAKES HIMSELF A SANDWICH, WHICHEVER HE IS IN THE MOOD FOR. HE HAS A NEIGHBOR WHO CAN HELP HIM IF NEEDED. SISTER CAIT LIV[place]. REINFORCED NOT DRINKING ALCOHOL. HE SAID HE WILL NOT DRINK. HE REFUSED PRINTED PACKET FOR RESOURCES FOR ALCOHOL DEPENDENCE. HE SAID I DON'T NEED ANY HELP WITH THAT. HE WILL DISCHARGE TODAY ,IF ABLE TO EAT REGULAR DIET FOR SUPPER. HE SAID HE FEELS MUCH BETTER, THAN WHEN HE CAME IN.
--- NOTE | 2018-07-02 17:56 | NUR ---
ASSUMED CARE OF PATIENT AFTER MORNING REPORT AT APPROX 0730. ALERT AND OREINTED X4. ASSESSMENT COMPLETED AND CHARTED. VSS ON ROOM AIR. NO COMPLAINTS OF NAUSEA, PAIN, OR SOA THIS SHIFT. POTASSIUM AT 3.1 THIS AM, ELECTROLYTE PROTOCOL FOLLOWED FOR REPLACEMENT, LAB DRAW WAS 4.4 THIS AFTERNOON. IV FLUIDS SALINE LOCKED THIS MORNING PER ORDERS. PATIENT DISCHARGED AT 1730 WITH ALL PERSONAL BELONGINGS, PRESCRIPTIONS, AND DISCHARGE INFORMATION.
--- NOTE | 2018-07-03 13:22 | CON ---
[address] [address] CONSULTATION Name: LYUDMILA KOVACS Room: [address] IN M.R.#: [id number] Admission: 06/30/18 Attend Phys: Ellen Foley MD Discharge: 07/02/18 Date of : 54 Report #: [id number] THIS REPORT FOR: //name// CC: FAM unknown Ellen Foley DATE OF SERVICE: 07/01/2018 HISTORY OF PRESENT ILLNESS: The patient is a pleasant 67-year-old gentleman with past medical history significant for CHF, atrial fibrillation and history of alcohol abuse who is presenting with an episode of abdominal pain. The patient has history of multiple episodes of pancreatitis in the past. The patient reports that this current episode started 2 days back with pain located in the upper abdomen. The pain is sharp, stabbing in nature, is localized and nonradiating. The patient denies any particular aggravating or alleviating factors with the pain. The patient reports that he did have a beer prior to the presentation. The patient has had multiple episodes of pancreatitis from alcohol abuse. He continues to drink 2-3 beers per day. The patient denies any nausea, vomiting, diarrhea, fevers or chills. PAST MEDICAL HISTORY: The patient has a history of coronary artery disease status post stenting. The patient also has a history of CHF and recurrent episodes of pancreatitis. PAST SURGICAL HISTORY: The patient had a pacemaker defibrillator placed in the past. SOCIAL HISTORY: The patient reports alcohol abuse as mentioned before. Additionally, he smokes cigarettes and reports that he currently quit, but prior to this, he would smoke 3 packs per day for the last 50 years. Denies any recreational drug use. FAMILY HISTORY: The patient denies any family history of colon cancer or pancreatic cancer. REVIEW OF SYSTEMS: A comprehensive 10-point review of systems is negative. PHYSICAL EXAMINATION: VITAL SIGNS: Temperature 36.7, pulse rate 61, respirations 16, blood pressure 118/73. GENERAL: The patient is alert, awake, oriented x 3. HEENT: Mucous membranes are moist. There is no congestion. LUNGS: Clear to auscultation bilaterally. NECK: Supple. There is no supraclavicular lymphadenopathy. HEART: [place] [address] CONSULTATION Name: LYUDMILA KOVACS Room: [address]#: [id number] Admission: 06/30/18 Attend Phys: Ellen Foley MD Discharge: 07/02/18 Date of : 54 Report #: [id number] ABDOMEN: Soft. There is no distention. Mild tenderness in the epigastric region. No guarding or rigidity. EXTREMITIES: Warm and well perfused. LABORATORY DATA: WBC count 7.3, hemoglobin 8.1, hematocrit 26.1, platelet count 277. Sodium 138, potassium 3.4, chloride 101, bicarbonate 27, BUN 19, creatinine 1.7, total bilirubin 0.9, AST 46, ALT 45, alkaline phosphatase 316, lipase 2860. ASSESSMENT AND PLAN: This is a very pleasant 67-year-old gentleman with prior history of coronary artery disease with ischemic cardiomyopathy and recurrent acute pancreatitis from alcohol abuse with another episode of pancreatitis following alcohol consumption. Mild acute pancreatitis: I am going to get a CT abdomen with IV contrast to assess the presence of any local complications such as pseudocyst formation or biliary strictures from chronic pancreatitis. I have reiterated the importance of complete cessation of alcohol use in the patient due to his recurrent episodes of pancreatitis. Further recommendations will be based on his CT abdomen. The patient can resume a clear liquid diet, continue with IV fluids and pain control. <ELECTRONICALLY SIGNED> By: Da Gage MD 07/03/18 1322 2036 [id number] Gage MD /nt
== END 2018-07-02 17:30 | disposition home or self-care (01) | DRG 438 ==
LOC: M.ERS 14:29 → M.ORTHSURG 16:38 → M.TBA-ER 16:38 → M.ORTHSURG 17:23
PROVIDERS: Nurse Practitioner Family; ADMIT Internal Medicine
DX: K85.20 Alcohol induced acute pancreatitis without necrosis or infection (principal); N17.1 Acute kidney failure with acute cortical necrosis; I42.9 Cardiomyopathy, unspecified; K86.3 Pseudocyst of pancreas; J44.9 Chronic obstructive pulmonary disease, unspecified; F10.20 Alcohol dependence, uncomplicated; I50.9 Heart failure, unspecified; K59.00 Constipation, unspecified; F17.210 Nicotine dependence, cigarettes, uncomplicated; I25.10 Atherosclerotic heart disease of native coronary artery without angina pectoris; I48.91 Unspecified atrial fibrillation; Z95.810 Presence of automatic (implantable) cardiac defibrillator; Z80.0 Family history of malignant neoplasm of digestive organs; Z79.82 Long term (current) use of aspirin; Z79.899 Other long term (current) drug therapy; Z95.5 Presence of coronary angioplasty implant and graft; Z90.49 Acquired absence of other specified parts of digestive tract; I25.2 Old myocardial infarction

== ENCOUNTER 2018-09-08 17:34 | Inpatient (IN) | payer MEDICARE ==
[~2018-09-08] VITALS: Ht 175.3 cm; Wt 81.3 kg
[~2018-09-08 17:34] MED LIST changes: +BANOPHEN25 MG PO; +MELATONIN5 M1 PO; +TRAMADOL 50 MG50 MG PO
[2018-09-08 18:00] LABS: BE -4.5 mmol/L (-2 to +3); HCO3 17.5 mmol/L (22.0-26.0); PCO2 23.3 mmHg (35.0-45.0); pH 7.494 (7.340-7.450)
[2018-09-08 18:04] LABS: PO2 55.4 mmHg (75.0-100.0)
[2018-09-08 18:36] LABS: HEMOGLOBIN 9.7 gm/dL (14.0-18.0); MPV 7.1 fl. (7.2-11.1)
[2018-09-08 18:38] LABS: HEMATOCRIT 32.7 % (42.0-52.0); MCH 23.2 pg (26.0-34.0); MCHC 29.7 g/dL (28.0-37.0); NUCLEATED RBCS 2 /100WBC; PLATELET COUNT* 284 thou/uL (150-400); RBC 4.19 mil/uL (4.50-6.00); RDW-CV 24.2 % (10.5-14.5); WBC 10.4 thou/uL (4.0-11.0)
[2018-09-08 18:48] LABS: ANION GAP 17 mmol/L (7-16); BUN 61 mg/dL (7-18); CALCIUM 8.6 mg/dL (8.5-10.1); CHLORIDE 113 mmol/L (98-107); CO2 22 mmol/L (21-32); CREATININE 2.6 mg/dL (0.6-1.3); GLUCOSE 112 mg/dL (70-99); POTASSIUM 3.1 mmol/L (3.5-5.1); SODIUM 152 mmol/L (136-145)
[2018-09-08 18:57] LABS: ABSOLUTE LYMPHOCYTES 0.4 thou/uL (0.8-5.3); ABSOLUTE MONOCYTES 0.4 thou/uL (0.0-1.2); ABSOLUTE NEUTROPHILS 9.6 thou/uL (1.6-8.1); HYPOCHROMASIA 1+; PLATELET ESTIMATE ADEQUATE; TOXIC GRANULATION 1+
[2018-09-08 18:58] LABS: ANISOCYTOSIS 1+; MACROCYTES 1+
--- NOTE | 2018-09-08 18:59 | NUR ---
REPORT GIVEN TO EMMETT DUPONT
[2018-09-08 19:05] LABS: APTT 27.1 Seconds (25.0-31.3); INR 1.4; PROTIME 14.4 Seconds (9.20-11.50)
[2018-09-08 19:07] LABS: ALKALINE PHOSPHATASE 385 U/L (46-116); CK-MB MASS 37.3 ng/mL (<0.5-3.6); MAGNESIUM 4.1 mg/dL (1.8-2.4); NT-PRO BRAIN NAT PEPTIDE > 35000 pg/mL (<300); SGOT 434 U/L (15-37); SGPT 193 U/L (30-65); TOTAL BILIRUBIN 2.9 mg/dL (<0.1-1.0); TOTAL PROTEIN 8.2 g/dL (6.4-8.2); TROPONIN-I LEVEL 0.52 ng/mL (<0.06)
[2018-09-08 20:28] LABS: URINE BLOOD 3+ (Negative); URINE CLARITY CLEAR; URINE COLOR YELLOW; URINE GLUCOSE-RANDOM NEGATIVE (Negative); URINE KETONES 1+ (Negative); URINE LEUKOCYTES-REFLEX NEGATIVE (Negative); URINE NITRITE-REFLEX NEGATIVE (Negative); URINE PROTEIN 1+ (Negative); URINE SPECIFIC GRAVITY 1.025 (1.005-1.030); URINE UROBILINOGEN 0.2 E.U./dl (0.2-1.0)
[2018-09-08 20:31] LABS: ICTOTEST (BILI CONFIRMATORY) Positive (Negative); URINE BILIRUBIN 1+ (Negative)
[2018-09-08 20:40] LABS: BACTERIA-REFLEX >30 Many /HPF (None Seen); CRYSTALS None Seen /LPF (None Seen); FINE GRANULAR CASTS 4-10 Moderate /LPF (None Seen); MUCUS 0-3 Light strn/LPF (None Seen); SQUAMOUS 0-3 Few /LPF (0-3); URINE RBC 3-10 Few /HPF (0-2); URINE WBC-REFLEX None Seen /HPF (0-5)
[2018-09-08 20:42] LABS: BE -6.2 mmol/L (-2 to +3); HCO3 16.9 mmol/L (22.0-26.0); PCO2 25.7 mmHg (35.0-45.0); pH 7.436 (7.340-7.450)
[2018-09-08 20:44] LABS: PO2 57.1 mmHg (75.0-100.0)
--- NOTE | 2018-09-08 21:50 | NUR ---
LEFT FOR CT AT 2109. BACK AT 2144
--- NOTE | 2018-09-08 22:07 | NUR ---
PT TAKEN TO CT ON MONITOR WITH NURSE, RESPIRATORY THERAPY AND BRANCH SALES AND SERVICE REPRESENTATIVE AT 2100. RETURNED TO ED AT 0. CABEZAS TEMP PROBE INSERTED AT 2150. CLOUDY YELLOW URINE IN COLLECTION BAG.
[2018-09-08 22:40] LABS: ALBUMIN 2.1 g/dL (3.4-5.0); CALCIUM 8.6 mg/dL (8.5-10.1); CREATININE 2.7 mg/dL (0.6-1.3); POTASSIUM 3.3 mmol/L (3.5-5.1); TOTAL BILIRUBIN 2.8 mg/dL (<0.1-1.0); TOTAL PROTEIN 7.6 g/dL (6.4-8.2)
[2018-09-09] VITALS (20 sets, daily range): BP systolic 90–120; BP diastolic 50–68
[2018-09-09 02:04] LABS: ALBUMIN 1.6 g/dL (3.4-5.0); CALCIUM 7.8 mg/dL (8.5-10.1); CREATININE 2.4 mg/dL (0.6-1.3); POTASSIUM 3.5 mmol/L (3.5-5.1); TOTAL BILIRUBIN 2.3 mg/dL (<0.1-1.0); TOTAL PROTEIN 6.8 g/dL (6.4-8.2)
[2018-09-09 02:06] LABS: AMP/METHAMP Negative (Negative); BARBITURATES Negative (Negative); BENZODIAZEPINES Negative (Negative); COCAINE Negative (Negative); METHADONE Negative (Negative); OPIATES Negative (Negative); PCP Negative (Negative); THC Negative (Negative)
--- NOTE | 2018-09-09 03:09 | NUR ---
PT. ADMITTED TO ROOM 6 ICU AT 0035. PT. HAS MUMBLED/GARBLED/UNINTELLIGIBLE SPEECH. ORIENTED TO ROOM, CALL LIGHT. BIPAP IN PLACE WITH 60% FIO2. PT. HAS AICD, SINUS RHYTHGM WITH PVC'S. VITAL SIGNS STABLE. HEPARIN PROTOCOL ORDERED, HEPARIN GTT STARTED WITH 2ND RN CHECK AT 960 UNITS/HR. PTT RECHECK PUT IN FOR 0730. CALL LIGHT IN REACH, WILL CONTINUE TO MONITOR.
--- NOTE | 2018-09-09 05:18 | NUR ---
PT. TOLERATED BIPAP WELL SINCE ADMISSION. ATIVAN GIVEN X1 DOSE FOR AGITATION/RESTLESSNESS. PT. HAS SLEPT WELL SINCE. HEPARIN GTT REMAINS INFUSING, IVF INFUSING. CALL LIGHT IN REACH, WILL CONTINUE OT MONITOR.
[2018-09-09 08:09] LABS: AMMONIA < 10 umol/L (11-32); PHOSPHORUS* 3.1 mg/dL (2.5-4.9)
--- NOTE | 2018-09-09 11:00 | NUR ---
PT.KNOWN FROM PREVIOUS ADMISSIONS. OBTAINED HX FROM PREVIOUS ADMISSIONS AND NSG.STAFF. PT.ON BIPAP AMD DROWSY. WAS MOVING FURNITURE AT HIS HOME LAST . AND FELL. LAID THERE UNTIL YESTERDAY WHEN A NEIGHBOR HEARD HIM YELLING. HE NORMALLY USES A WALKER. IS FAIRLY INDEPENDENT. DROVE IN JUN. HE HAS USED [facility] IN THE PAST, BUT LAST FEW ADMISSIONS HAS DECLINED HOME HEALTH. SISTER,CAIT, LIVES IN [place]. CM WILL FOLLOW FOR DISCHARGE.
[2018-09-09 11:34] LABS: POTASSIUM 3.2 mmol/L (3.5-5.1)
--- NOTE | 2018-09-09 13:24 | NUR ---
PATIENT IS VERY SLEEPY, UNABLE TO COME OFF THE BIPAP FOR VQ SCAN AT THIS TIME. WILL CONTINUE TO TRY, HOLDING SCHEUDLED ATIVAN, NUCLEAR MEDCINE UPDATED.
--- NOTE | 2018-09-09 13:58 | 2DMMODE ---
[place] [address] 2 D/M-MODE ECHOCARDIOGRAM Name: FERMÍNLYUDMILA Ivana Room: 006[facility] IN [facility]#: [id number] Admission: 09/08/18 Attend Phys: Alireza Ma, Discharge: Date of : 54 Date of Service: 09/09/18 1358 Report #: [id number] THIS REPORT FOR: //name// APPROVED REPORT Study performed: 09/09/2018 10:12:26 EXAM: Comprehensive 2D, Doppler, and color-flow Echocardiogram Patient Location: In-Patient Room #: 006 Status: routine BSA: 1.78 HR: 68 bpm BP: 113/68 mmHg Rhythm: NSR Other Information Study Quality: Good Indications Elevated Troponin 2D Dimensions IVSd: 9.88 (7-11mm) LVOT Diam: 19.48 (18-24mm) LVDd: 66.40 mm PWd: 10.79 (7-11mm) Ascending Ao: 37.75 (22-36mm) LVDs: 56.25 (25-40mm) Aortic Root: 32.51 mm Volumes Left Atrial Volume (Systole) LA ESV Index: 50.90 mL/m2 Aortic Valve AoV Peak Sonu.: 1.28 m/s AO Peak Gr.: 6.53 mmHg LVOT Max P.61 mmHg AO Mean Gr.: 3.48 mmHg LVOT Mean P.70 mmHg LVOT Max V: 1.29 m/s AO V2 VTI: 23.17 cm LVOT Mean V: 0.73 m/s ANUJ (VTI): 2.75 cm2 LVOT V1 VTI: 21.42 cm Mitral Valve E/A Ratio: 1.17 MV Decel. Time: 196.83 ms MV E Max Sonu.: 0.72 m/[place] [address] 2 D/M-MODE ECHOCARDIOGRAM Name: LYUDMILA KOVACS Room: [address] IN .R.#: [id number] Admission: 09/08/18 Attend Phys: Alireza Ma, Discharge: Date of : 54 Date of Service: 09/09/18 1358 Report #: [id number] MV PHT: 57.08 ms MVA (PHT): 3.85 cm2 TDI E/Lateral E': 12.00 E/Medial E': 14.40 Medial E' Sonu.: 0.05 m/s Lateral E' Sonu.: 0.06 m/s Pulmonary Valve PV Peak Sonu.: 0.94 m/s PV Peak Gr.: 3.54 mmHg Tricuspid Valve RAP Estimate: 5.00 mmHg TR Peak Gr.: 33.00 mmHg RVSP: 38.00 mmHg PA Pressure: 38.00 mmHg Left Ventricle Left ventricle is mildly dilated. There is moderate to severe global hypokinesis of the left ventricle. There is akinesis of the apex and septum as well as distal anterior wall. There is normal left ventricular wall thickness. Left ventricular systolic function is moderate to severely decreased. Left ventricular thrombus is present. LVEF is 30-35%. The left ventricular diastolic function is normal. Right Ventricle Right ventricle is mildly dilated. The right ventricular systolic function is normal. Pacemaker lead is present in the right ventricle. Atria Left atrium is moderately dilated. Right atrium is moderately dilated. Aortic Valve The aortic valve is normal in structure. No aortic regurgitation is present. There is no aortic valvular stenosis. Mitral Valve The mitral valve is normal in structure. Mild mitral regurgitation. No evidence of mitral valve stenosis. Tricuspid Valve The tricuspid valve is normal in structure. Mild tricuspid regurgitation. Mild pulmonary [place] [address] 2 D/M-MODE ECHOCARDIOGRAM Name: LYUDMILA KOVACS Room: [address] IN [facility]#: [id number] Admission: 09/08/18 Attend Phys: Alireza Ma, Discharge: Date of : 54 Date of Service: 09/09/18 1358 Report #: [id number] The pulmonary valve is normal in structure. Trace pulmonic regurgitation. Great Vessels The aortic root is normal in size. IVC is normal in size and collapses >50% with inspiration. Pericardium There is no pericardial effusion. <Conclusion> Left ventricle is mildly dilated. There is normal left ventricular wall thickness. Left ventricular systolic function is moderate to severely decreased. LVEF is 30-35%. The left ventricular diastolic function is normal. There is moderate to severe global hypokinesis of the left ventricle. There is akinesis of the apex and septum as well as distal anterior wall. Left ventricular thrombus is present. Pacemaker lead is present in the right ventricle. Left atrium is moderately dilated. Right atrium is moderately dilated. Right ventricle is mildly dilated. Mild mitral regurgitation. Mild tricuspid regurgitation. Mild pulmonary hypertension. <ELECTRONICALLY SIGNED> By: Barney Hannon MD, FACC 09/09/18 1358 1358 1358 Barney Hannon MD, FACC /INF
--- NOTE | 2018-09-09 16:21 | EKG ---
[place] [address] ELECTROCARDIOGRAM REPORT Name: FERMÍNLYUDMILA ALEJANDRO Ivana Room: [address] ADM IN M.R.#: [id number] Admission: 09/08/18 Attend Phys: Alireza Ma MD Discharge: Date of : 54 Report #: [id number] THIS REPORT FOR: //name// [facility] ED Test Date: 2018-09-08 Test Time: 17:44:51 Pat Name: LYUDMILA KOVACS Department: Room: [address] Gender: M Investor Relations Manager: [place] : 1950 Requested By: Brianna Hightower Order Number: [id number] Magaly MD: Barney Hannon Measurements Intervals [place] Rate: 110 P: 26 DE: 143 QRS: 125 QRSD: 178 T: QT: 485 QTc: 657 Interpretive Statements Sinus tachycardia Nonspecific intraventricular conduction delay Anteroseptal infarct, old, possible Repol abnrm suggests ischemia, lateral leads Baseline wander in lead(s) I,II,aVR Compared to ECG 06/12/2018 17:56:46 Ventricular premature complex(es) now present Q waves now present Myocardial infarct finding now present Possible ischemia now present Atrial-paced complex(es) or rhythm no longer present Electronically Signed On 09-09-2018 16:21:34 FREIGHT CALLER by Barney Hannon [email or web address] <ELECTRONICALLY SIGNED> By: Barney Hannon MD, FACC 09/09/18 1621 1744 1744 Barney Hannon MD, FAC /EPI
--- NOTE | 2018-09-09 17:20 | NUR ---
PATIENT SOMEWHAT PROGRESSING WELL TOWARDS GOALS. PATIENT COULD NOT COMPLETE VQ SCAN TODAY, NOT FOLLOWING COMMANDS AND REMAINS ON BIPAP. CAME OFF FOR ABOUT 30MINS TO 45MINS TODAY BUT HAD TO GO BACK ON DUE TO INCREASE WORK OF BREATHING AND SATS DROPPING. Q2H DONE TO PREVENT SKIN BREAKDOWN. CONTINUES TO BE ALERT TO SELF BUT MOANS IN PAIN AND SAYS HE WANTS TO GO HOME. ANTIBIOTICS STARTED AND ATIVAN GIVEN SCHEDULED FOR CIWA PROTOCOL. HEPARIN CONTINUES TO INFUSE, MONITORING APTT. BED IN LOWEST POSITON, CALL LIGHT IN REACH, CURING SUPERVISOR IN PLACE, FALL PRECAUTIONS IN PLACE.
--- NOTE | 2018-09-09 17:36 | CON ---
[address] [address] CONSULTATION Name: LYUDMILA KOVACS Room: [address] IN M.R.#: [id number] Admission: 09/08/18 Attend Phys: Alireza Ma MD Discharge: Date of : 54 Report #: [id number] THIS REPORT FOR: //name// CC: Dr. Portillo FAM unknown Alireza Ma INDICATION: Elevated troponin. HISTORY OF PRESENT ILLNESS: The patient is a 68-year-old gentleman who fell at home 3-4 days ago moving furniture. He had an acute hip pain. He stayed on the floor for 3-4 days and was found after calling out. He is admitted with rhabdomyolysis. In this setting, his troponin is 0.56. He has a known history of coronary artery disease and ischemic cardiomyopathy. He is status post ICD placement. He is not having acute chest pain. EKG shows sinus rhythm with diffuse ST segment depression and T-wave inversion. I do not have old EKG for comparison. PAST MEDICAL HISTORY: 1. Coronary artery disease. 2. Ischemic cardiomyopathy. 3. ICD in place for primary prevention. 4. Chronic systolic heart failure. 5. History of pancreatitis. 6. Chronic obstructive pulmonary disease. 7. Alcoholism. 8. History of renal failure. FAMILY HISTORY: Noncontributory. SOCIAL HISTORY: The patient smoked a pack of cigarettes daily, having quit over a year ago. He drinks alcohol. REVIEW OF SYSTEMS: Not obtainable at this time. HOME MEDICATIONS: Amiodarone 200 mg daily, aspirin 81 mg daily, Brilinta 90 mg b.i.d., Crestor 20 mg at bedtime, furosemide 60 mg at bedtime, metoprolol succinate 25 mg daily, potassium chloride 20 mEq b.i.d., Aldactone 25 mg daily, Entresto one tablet b.i.d., furosemide. PHYSICAL EXAMINATION: VITAL SIGNS: Blood pressure 113/68, pulse 86. GENERAL: This is an elderly gentleman, who appears older than stated age. He is thin. HEENT: Head is normocephalic, atraumatic. Extraocular muscles intact. NECK: Shows no jugular venous distention. There are no carotid bruits. CHEST: Reveals diminished breath sounds throughout [place] [address] CONSULTATION Name: LYUDMILA KOVACS Room: [address] IN [facility]#: [id number] Admission: 09/08/18 Attend Phys: Alireza Ma MD Discharge: Date of : 54 Report #: [id number] CARDIAC: Reveals a regular rhythm without S3 or S4. ABDOMEN: Reveals normal bowel sounds. The abdomen is soft, nontender. EXTREMITIES: Shows no edema. SKIN: Warm and dry. LABORATORY DATA: Reviewed. Sodium 153, potassium 3.5, chloride 117, bicarbonate 23, BUN 54, creatinine 2.4, serum glucose 217, AST 294, amylase 140, lipase 355, total bilirubin 2.3, calcium 7.8, phosphorus 3.1, magnesium 4.1, alkaline phosphatase 327, ALT 152, GGTP 113, total protein 6.8, albumin 1.6. EGFR 27. Ammonia less than 10, lactic acid 1.7. Total CPK on admission 3096, presently 1623. Troponin on admission 0.52, subsequently 0.56 and now 0.57. NT-proBNP greater than 35,000. TSH 22.277, free T4 is 0.7. INR 1.4, protime 14.4, aPTT 32.4. D-dimer 20.38. White blood cell count 10.4, hemoglobin 9.7, MCV 78.0, platelet count 284. Chest x-ray shows bilateral pulmonary airspace disease, most consistent with multifocal pneumonia. IMPRESSION AND RECOMMENDATIONS: 1. Elevated troponin, likely secondary to rhabdomyolysis and acute renal failure. We will follow clinically. 2. Ischemic cardiomyopathy, presently somewhat decompensated with elevated NT-proBNP. We will give IV Lasix for diuresis. We will need to follow the patient's renal function closely. 3. Coronary artery disease. The patient not presently complaining of chest discomfort to suggest angina. He is on dual antiplatelet therapy. We will continue for the time being. We will obtain echocardiogram. 4. Malnutrition. Consider nutritional consult during hospitalization. 5. Acute renal failure likely due to rhabdomyolysis. 6. Acute on chronic systolic heart failure. We will need to follow I's and O's closely and diurese as tolerated. 7. Rhabdomyolysis secondary to prolonged immobility on the floor. 8. Anemia with low MCV. Consider iron deficiency. At this point, I do not believe the patient is having an acute coronary syndrome. We will follow clinically. <ELECTRONICALLY SIGNED> By: Barney Hannon MD, FACC 09/09/18 1736 1043 [id number] Hannon MD, FACC /nt
[2018-09-10] VITALS (29 sets, daily range): BP systolic 71–123; BP diastolic 43–75
[2018-09-10 03:37] LABS: MAGNESIUM 3.7 mg/dL (1.8-2.4); PHOSPHORUS* 2.3 mg/dL (2.5-4.9)
[2018-09-10 03:59] LABS: ALBUMIN 1.4 g/dL (3.4-5.0); CALCIUM 7.5 mg/dL (8.5-10.1); CREATININE 2.2 mg/dL (0.6-1.3); TOTAL BILIRUBIN 1.7 mg/dL (<0.1-1.0); TOTAL PROTEIN 6.3 g/dL (6.4-8.2)
[2018-09-10 04:00] LABS: POTASSIUM 4.4 mmol/L (3.5-5.1)
--- NOTE | 2018-09-10 05:09 | NUR ---
PATIENT NOT PROGRESSING TOWARDS GOALS. NOT ABLE TO FORM WORDS PT JUST MOANS. REFUSES TO FOLLOW COMMANDS. WHEN ASKED IF IN PAIN HE NODS NO. TRIED TO DO A BEDSIDE SWALLOW STUDY PT REFUSED. DOES NOT TOLERATE OFF BIPAP FOR LONGER THEN TWO MIN PT WILL START TO DESAT. CONTINUES ON HEPARIN GTT APTT NOW THERAPEUTIC. ELECTROLYTE REPLACED. PT UNABLE TO TAKE ANY PO MEDICATION. PT RECIEVED Q2H TURNS DENIES PAIN. CALL LIGHT WITHIN REACH. NO VOICED CONCERNS AT THIS TIME.
[2018-09-10 09:11] LABS: % SATURATION 10 % (20-39); IRON 22 ug/dL (50-175)
[2018-09-10 09:39] LABS: BE -3.7 mmol/L (-2 to +3); HCO3 18.8 mmol/L (22.0-26.0); PO2 75.2 mmHg (75.0-100.0); pH 7.478 (7.340-7.450)
--- NOTE | 2018-09-10 11:31 | CON ---
[address] [address] CONSULTATION Name: LYUDMILA KOVACS Ivana Room: [address] IN M.R.#: [id number] Admission: 09/08/18 Attend Phys: Alireza Ma MD Discharge: Date of : 54 Report #: [id number] THIS REPORT FOR: //name// CC: FAM unknown Alireza Ma DATE OF SERVICE: 09/09/2018 REASON FOR CONSULTATION: Hypernatremia and acute kidney injury. REQUESTING PHYSICIAN: Dr. Foley. HISTORY OF PRESENT ILLNESS: The patient is a 68-year-old white man with medical history significant for chronic kidney disease stage 3, history of alcoholism, history of deconditioning, chronic pancreatitis. He apparently fell at home and was lying down for several days. He eventually was found down by the family. He was brought to the Emergency Room and was found to be in acute kidney injury, rhabdomyolysis and hypernatremia. PAST MEDICAL HISTORY: As mentioned earlier. SOCIAL HISTORY: Positive for tobaccoism. MEDICATIONS: Prior to admission reviewed. FAMILY HISTORY: No history of renal failure. REVIEW OF SYSTEMS: The patient is very lethargic and does not answer my questions. PHYSICAL EXAMINATION: GENERAL: He is lethargic in the Intensive Care Unit. VITAL SIGNS: His blood pressure 113/68, heart rate 86, temperature is 36.3. HEENT: Pupils are round. NECK: Supple. LUNGS: Decreased air movements. No crackles. CARDIOVASCULAR: Regular rate. ABDOMEN: Soft. LOWER EXTREMITIES: No edema. LABORATORY DATA: Significant for serum sodium of 153, potassium is 3.5, chloride 117, BUN 54, creatinine 2.4, albumin is 1.6. Total CPK was 3000 and it is coming down, today it is down to 1623. ASSESSMENT: A 68-year-old man admitted with acute kidney injury and rhabdomyolysis. [address] [place] [address] CONSULTATION Name: LYUDMILA KOVACS Ivana Room: [address] IN [facility]#: [id number] Admission: 09/08/18 Attend Phys: Alireza Ma MD Discharge: Date of : 54 Report #: [id number] PLAN: To continue with hypotonic fluids to correct his sodium and of course the main problem would be to take care of his alcohol problems. If he continues to drink, this problem will recur. I discussed this case with the patient, nurse and with Dr. Hannon. 30 minutes spent. <ELECTRONICALLY SIGNED> By: Toñito Osei MD 09/10/18 1131 1051 [id number] Osei MD /PMT
[2018-09-10 11:36] LABS: POTASSIUM 3.8 mmol/L (3.5-5.1)
[2018-09-10 12:25] LABS: BE -9.9 mmol/L (-2 to +3); HCO3 20.1 mmol/L (22.0-26.0); PO2 81.4 mmHg (75.0-100.0)
[2018-09-10 12:28] LABS: PCO2 67.5 mmHg (35.0-45.0); pH 7.091 (7.340-7.450)
[2018-09-10 13:44] LABS: BE -5.5 mmol/L (-2 to +3); HCO3 21.4 mmol/L (22.0-26.0); PCO2 48.4 mmHg (35.0-45.0); PO2 122.6 mmHg (75.0-100.0)
[2018-09-10 13:45] LABS: pH 7.263 (7.340-7.450)
--- NOTE | 2018-09-10 13:49 | CON ---
[address] [address] CONSULTATION Name: LYUDMILA KOVACS Ivana Room: [address] IN M.R.#: [id number] Admission: 09/08/18 Attend Phys: Alireza Ma MD Discharge: Date of : 54 Report #: [id number] THIS REPORT FOR: //name// CC: FAM unknown Alireza Ma DATE OF SERVICE: 09/10/2018 CHIEF COMPLAINT: Altered mental status. HISTORY OF PRESENT ILLNESS: The patient is unresponsive, not following commands. We were asked to see the patient regarding his level of consciousness and airway protection concerns. The information is taken from the patient's records. The patient presented to the Emergency Room, apparently was found by family members on the floor. Not sure how long he had been on the floor. Records reflect that there may have been 3-4 days prior to being found. He was evaluated in the Emergency Room, placed on BiPAP therapy. Apparently, the patient did injure his hip. There have been no fractures identified during the evaluation of his initial workup. He was transferred to the Intensive Care Unit because of his declining mental status and for closer monitoring. PAST MEDICAL HISTORY: The patient has a significant past medical history, consisting of the following: Pancreatitis secondary to alcohol abuse, chronic kidney disease, ejqik-jc-gawkfqf renal failure, cardiomyopathy with a history of congestive heart failure and diabetes. He has a history of pneumonia and was felt to have rhabdomyolysis at this time. ALLERGIES: None known. REVIEW OF SYSTEMS: Not obtainable. The family members are not available at this time to report any prior symptoms the patient may have had. MEDICATIONS: His medications consist of thiamine. He will be given fentanyl on a p.r.n. basis for pain and sedation. Midazolam drip will be initiated after the patient is intubated. He is on melatonin at night time. vitamins. He has been started on Zosyn therapy as an antibiotic. Brilinta. He is on metoprolol, amiodarone, Pepcid, i.e., famotidine and levothyroxine. He is on a heparin drip. He has been getting lorazepam for withdrawal protocol. FAMILY HISTORY: None reported. SOCIAL HISTORY: He is a prior smoker, lives alone. He smokes approximately 2-3 packs per day for at least 50 years. He also [place] [address] CONSULTATION Name: LYUDMILA KOVACS Ivana Room: [address]#: [id number] Admission: 09/08/18 Attend Phys: Alireza Ma MD Discharge: Date of : 54 Report #: [id number] basis; unable to get the exact amount at this time in view of the fact of the patient's mental status has been impaired. PHYSICAL EXAMINATION: VITAL SIGNS: Reveal blood pressure 114/66, respiratory rate 31, pulse rate 90 and regular at about 87 on the monitor and temperature 99 degrees. Weight yesterday was 141 pounds. GENERAL APPEARANCE: The patient is on BiPAP therapy. He is moaning. He is not responding to simple questions. He will not voluntarily open his eyes. HEAD: Atraumatic. EYES: Pupils are round, equal, reactive and respond appropriately to light reflex. There is no evidence of scleral icterus. Conjunctivae are clear otherwise. NOSE: Nasal passages are patent. ORAL CAVITY: He has very poor oral dentition. Some bloody secretions in his oral cavity. NECK EXAMINATION: There is no adenopathy. No resistance to movement, without JVD. CHEST: Reveals crackles bilaterally, more so on the left than the right. Breath sounds are equal bilaterally. CARDIOVASCULAR EXAMINATION: Reveals regular rhythm. No appreciable murmurs or rubs. ABDOMEN: Soft. Slight tenderness with palpation predominantly in the left upper quadrant area. I cannot appreciate any mass effect. There is no rebound or guarding. He does grimace with slight degree of compression on his abdomen, not sure that this is pain or just moaning as a result of the examination. EXTREMITIES: There is no evidence of edema or clubbing. SKIN: Warm and dry. No rash effect. Without lesions. MUSCULOSKELETAL: He does have muscle wasting. The patient does not have any joint swelling. NEUROLOGIC: No pathologic reflexes. The patient does move, but not in a purposeful manner. DIAGNOSTIC DATA: Chest x-ray reveals pacemaker battery pack in the left upper chest. The wires appear intact. There are diffuse bilateral infiltrates with blunting of the costophrenic angles bilaterally. The trachea appears midline. I did not appreciate any sort of mass effect. The infiltrates appears slightly perihilar. Also reveals that a 2-D echocardiogram had been performed on admission, revealing wdvaogeg-en-vhccvp global hypokinesis with akinesis of the apex. The estimated ejection fraction 30% to 35%. Right ventricle was mildly dilated, left atrium moderately dilated. There was evidence of mild pulmonary hypertension per the manager of hospital. There was also present a left ventricular thrombus. [address] [address] CONSULTATION Name: LYUDMILA KOVACS Room: [address] IN Ivanna.#: [id number] Admission: 09/08/18 Attend Phys: Alireza Ma MD Discharge: Date of : 54 Report #: [id number] LABORATORY DATA: This morning blood draws revealed sodium 155, potassium 4.4, chloride 123, CO2 of 22, BUN of 47, creatinine of 2.2 and glucose 241. SGOT is elevated. SGPT is elevated. Total bilirubin is slightly increased as well at 1.7. Albumin is low. EGFR of 30. His initial proBNP on admission was greater than 35,000. Troponin was 0.52 on admission, Lactic acid initially was 2.3; repeat about an hour and a half later was 1.7, that was on admission. His ammonia level is less than 10. Troponin 0.57. INR 1.4. D-dimer was elevated. Drug screen was negative. Hemoglobin and hematocrit of 9.7 and 32.7 with a white count of 10,400. Urinalysis on admission revealed 3-10 rbc's per high-powered field, bacteria was greater than 30 per high-powered field. Arterial blood gas while on BiPAP therapy this morning, at about 09:30, revealed a pH of 7.48, pCO2 of 26, pO2 of 75 and bicarbonate of 18. ASSESSMENT: 1. Altered mental status. 2. Respiratory failure, requiring intubation, also for protection of airway. 3. Fluid overload state, as directed by an elevated BNP and a chest x-ray suggestive of pulmonary edema. 4. Pulmonary infiltrates, pneumonia versus pulmonary edema and/or both. 5. Alcohol abuse with alcohol withdrawal. 6. Rqlhr-dc-sahxhpd renal disease with an elevated creatinine and a decreased EGFR. 7. Chronic obstructive airways disease, most likely as a result of a significant tobacco abuse history. 8. Left ventricular thrombus. 9. Cardiomyopathy. RECOMMENDATIONS: The patient will be intubated for airway protection. He will be started on midazolam drip. Ventilator adjustments will be made according to arterial blood gases. Antibiotics have been started; continue those for the time being. Repeat cultures to get a good sputum culture after intubation. Urine for Legionella, pneumococcal antigen studies and also, we will obtain a viral panel. Followup ABGs, chest x-rays will be obtained post-intubation as well as tomorrow for evaluation. Continue with alcohol withdrawal protocol as well. From a kidney standpoint, it might be a good idea to get Renal involved and Cardiology, if not already involved. Approximately 35 minutes spent in this critical care consult. <ELECTRONICALLY SIGNED> By: Kalyan Walter MD 09/10/18 1349 1021 [id number] Walter MD /nt
--- NOTE | 2018-09-10 19:45 | NUR ---
PT NOT PROGRESSING TOWARD GOALS. PT INTUBATED AT 1057 THIS AM. PT BP CONTINUES TO FLUCTUATE. PT CURRENTLY ON LEVO GTT. PT HAS AN ORDER FOR SHAHEED GTT IF BP CONTINUES TO DROP. SPOKE WITH SISTER, PT DOES NOT HAVE A DPOA OR LIVING WILL. PT HAD CENTRAL LINE AND ARTLINE INSERTED AT 1800 THIS EVENING. PT REMAINS UNRESPONSIVE.
--- NOTE | 2018-09-10 22:00 | NUR ---
APTT 198.4 PT ON HEPARIN GTT. WILL TURN OFF GTT PER PROTOCOL FOR AN HOUR THEN RESUME WITH REDUCED GTT. PAGED TO SEE IF HE WANTED TO DO SOMETHING DIFFERENT. WILL CONTINUE TO MONITOR CLOSELY.
[2018-09-11] VITALS (26 sets, daily range): BP systolic 86–128; BP diastolic 43–74
[2018-09-11 04:22] LABS: HEMATOCRIT 27.5 % (42.0-52.0); HEMOGLOBIN 8.1 gm/dL (14.0-18.0); MCH 23.3 pg (26.0-34.0); MCHC 29.6 g/dL (28.0-37.0); MCV 78.8 fL (80.0-100.0); MPV 7.2 fl. (7.2-11.1); RBC 3.49 mil/uL (4.50-6.00); WBC 12.4 thou/uL (4.0-11.0)
[2018-09-11 04:40] LABS: ALBUMIN 1.2 g/dL (3.4-5.0); CALCIUM 7.5 mg/dL (8.5-10.1); CREATININE 2.2 mg/dL (0.6-1.3); MAGNESIUM 2.9 mg/dL (1.8-2.4); POTASSIUM 3.4 mmol/L (3.5-5.1); TOTAL BILIRUBIN 1.5 mg/dL (<0.1-1.0); TOTAL PROTEIN 5.9 g/dL (6.4-8.2)
--- NOTE | 2018-09-11 05:31 | NUR ---
PATIENT NOT PROGRESSING TOWARDS GOALS. REMAINS ON LEVO AND VERSED GTT. HAS NOT TOLERATED DECREASE IN LEVO TITRATION PT VERY LABILE. REMOVED SEVERAL RED LIKE GELATINOUS SUBSTANCE FROM MOUTH WHEN DOING ORAL CARE. PT CONTINUES TO BLEED FROM MOUTH, CENTRAL LINE AND ART-LINE. HEPARIN TURNED OFF, DR. CONTRERAS ORDERS RECIEVED. PT RUNNING LOW-GRADE FEVER 99.0-99.8. FAN ON, COLD CLOTH ON FORHEAD. APTT REMAINS HIGH DR. CONTRERAS AND ORDERS GIVEN. WILL CONTINUE TO MONITOR CLOSELY. PT RECEIVED FULL BED BATH WITH LINEN CHANGE TOLERATED WELL.
--- NOTE | 2018-09-11 07:34 | NUR ---
PT APTT IS STILL CRITICALLY HIGH. HOLD FOR ANOTHER HOUR AND REDRAW
--- NOTE | 2018-09-11 13:55 | NUR ---
WOUND NURSE: PATIENT SEEN TO ADDRESS WOUND ON RIGHT HIP AND WHICH APPEARS TRIANGULAR IN SHAPE AND MEASURES 5.0 X 5.0 X 0.1 CM. PRESENTS DARK PURPLISH NONBLANCHEABLE LESION AND PALPATES BOGGY. THERE IS A [place]QUE OUTER LAYER COVERING THIS WOUND. PLAN IS TO CLEANSED WITH SOAP AND WATER, RINSE WITH WATER, THEN PAT DRY. APPLY OPTIFOAM GENTLE AG TO THE AFFECTED AREA AND CHANGE EVERY 3 DAYS AND NEEDED FOR NOW. WILL READDRESS INTERVENTION THE WOUND CHARACTERISTICS CHANGE.
[2018-09-12] VITALS (39 sets, daily range): BP systolic 95–130; BP diastolic 50–65
[2018-09-12 05:35] LABS: BE -5.5 mmol/L (-2 to +3); HCO3 18.4 mmol/L (22.0-26.0); PCO2 30.1 mmHg (35.0-45.0); PO2 70.7 mmHg (75.0-100.0); pH 7.404 (7.340-7.450)
[2018-09-12 05:42] LABS: HEMATOCRIT 27.6 % (42.0-52.0); MCH 22.7 pg (26.0-34.0); MCHC 28.9 g/dL (28.0-37.0); MCV 78.7 fL (80.0-100.0); MPV 8.7 fl. (7.2-11.1); RBC 3.51 mil/uL (4.50-6.00); RDW-CV 25.2 % (10.5-14.5)
[2018-09-12 06:00] LABS: CALCIUM 7.2 mg/dL (8.5-10.1); CREATININE 2.6 mg/dL (0.6-1.3); MAGNESIUM 2.6 mg/dL (1.8-2.4); POTASSIUM 3.3 mmol/L (3.5-5.1); TOTAL BILIRUBIN 1.6 mg/dL (<0.1-1.0); TOTAL PROTEIN 5.9 g/dL (6.4-8.2)
--- NOTE | 2018-09-12 14:14 | NUR ---
Nutrition: Recommend Nepro @ goal rate 40mL/hr, meeting 90-100% of needs. See RD reassessment form for details.
--- NOTE | 2018-09-12 19:20 | NUR ---
PATIENT NOT PROGRESSING WELL TOWARDS GOALS THIS SHIFT. CONTINUES TO HAVE BLEEDING ISSUES, ALL ANTICOAGS D/C BESIDES LOVENOX. LEVOPHED STILL REMAINS ON AT HIGH DOSE. VERSED ON FOR MANAGEMENT OF TACHYPNIA AND COMFORT. POTASSIUM REPLACED THIS SHIFT AND RECHECKED. BLOOD PRESSURE VERY LABILE THROUGHOUT SHIFT. REMAINS SINUS RHYTHM WITH OCCASIONAL APACING FROM [employer]. UPDATED SISTER CAIT IN [place] ABOUT PATIENT STATUS. SHE WOULD LIKE A DOCTOR TO CALL HER TOMORROW AND UPDATE HER ON PROGNOSIS AND PLAN OF CARE IF POSSIBLE. PATIENT REMAINS CRITICALLY ILL. FALL PRECAUTIONS IN PLACE, SAP DATA ANALYST IN PLACE, BED IN LOWEST POSITION.WILL CONTINUE TO MONITOR.
[2018-09-13] VITALS (42 sets, daily range): BP systolic 92–133; BP diastolic 42–67
--- NOTE | 2018-09-13 00:17 | NUR ---
RESTRAINTS REMOVED, PT SHOWS NO SIGNS OF MOVING HANDS, ARMS LEGS OR EXTREMITIES.
[2018-09-13 04:57] LABS: BE -9.2 mmol/L (-2 to +3); HCO3 18.4 mmol/L (22.0-26.0); PCO2 48.5 mmHg (35.0-45.0)
[2018-09-13 05:01] LABS: PO2 126.3 mmHg (75.0-100.0); pH 7.197 (7.340-7.450)
[2018-09-13 05:09] LABS: HEMATOCRIT 26.2 % (42.0-52.0); HEMOGLOBIN 7.7 gm/dL (14.0-18.0); MCH 23.5 pg (26.0-34.0); MCHC 29.4 g/dL (28.0-37.0); MPV 8.7 fl. (7.2-11.1); RBC 3.27 mil/uL (4.50-6.00); RDW-CV 24.9 % (10.5-14.5); WBC 16.7 thou/uL (4.0-11.0)
[2018-09-13 05:32] LABS: INR 1.1
[2018-09-13 05:53] LABS: CALCIUM 7.1 mg/dL (8.5-10.1); CREATININE 2.5 mg/dL (0.6-1.3); MAGNESIUM 2.7 mg/dL (1.8-2.4); POTASSIUM 4.6 mmol/L (3.5-5.1)
--- NOTE | 2018-09-13 12:59 | NUR ---
AT NOON ASSESSMENT PT NOTED TO HAVE UNEQUAL, REACTIVE PUPILS. DR NOTIFIED AND HEAD CT ORDERED. ABOUT 10 MINUTES AFTER THIS ASSESSMENT AND ORDERS PT REASSESSED AND PUPILS EQUAL AND REACTIVE. NOTIFIED AND RECEIVED ORDERS TO HOLD HEAD CT FOR NOW. THIS SHIFT LATERAL ASPECT OF RIGHT NECK NOTED TO BE MORE EDEMATOUS THEN LEFT SIDE. NOTIFIED AND RECEIVED ORDER FOR ULTRASOUND OF NECK. SEDATION TITRATED DOWN PER DR RAYGOZA AND PULMONARY. PT BEGAN MOVING HIS HEAD AND RESPONSIVE TO PAIN. PT NOT FOLLOWING COMMANDS. PER PULMONARY RECEIVED ORDERS TO START FENTANLY AND DECREASE AMOUNT OF VERSED. FENTANLY STARTED AND VERSED DECREASED. RECEIVED IN REPORT TO ASK DR RAYGOZA TO CALL SISTER CAIT WITH AN UPDATE. MESSAGE RELAYED AND DR RAYGOZA REPORTS SHE CALLED AND SPOKE TO SISTER CAIT.
[2018-09-14] VITALS (15 sets, daily range): BP systolic 99–130; BP diastolic 37–59
[2018-09-14 04:26] LABS: HEMATOCRIT 20.6 % (42.0-52.0); MCHC 29.6 g/dL (28.0-37.0); MCV 77.6 fL (80.0-100.0); MPV 8.8 fl. (7.2-11.1); RBC 2.65 mil/uL (4.50-6.00); RDW-CV 23.5 % (10.5-14.5); WBC 14.8 thou/uL (4.0-11.0)
[2018-09-14 04:46] LABS: HEMOGLOBIN 6.1 gm/dL (14.0-18.0)
[2018-09-14 04:48] LABS: ALBUMIN 1.6 g/dL (3.4-5.0); CREATININE 3.2 mg/dL (0.6-1.3); MAGNESIUM 2.5 mg/dL (1.8-2.4); POTASSIUM 4.1 mmol/L (3.5-5.1); TOTAL BILIRUBIN 1.3 mg/dL (<0.1-1.0); TOTAL PROTEIN 5.4 g/dL (6.4-8.2)
[2018-09-14 05:28] LABS: BE -6.8 mmol/L (-2 to +3); PCO2 32.9 mmHg (35.0-45.0); pH 7.357 (7.340-7.450)
[2018-09-14 05:29] LABS: PO2 127.6 mmHg (75.0-100.0)
[2018-09-14 05:34] LABS: HEMATOCRIT 20.3 % (42.0-52.0)
[2018-09-14 06:02] LABS: HEMOGLOBIN 6.1 gm/dL (14.0-18.0)
--- NOTE | 2018-09-14 06:05 | NUR ---
PT. NOT PROGRESSING TOWARDS GOALS. SEDATION HAS BEEN KEPT OFF ALL SHIFT, PT. STILL DOES NOT FOLLOW COMMANDS, NO COUGH REFLEX, PUPILS RESPONSIVE/BRISK. LEVOPHED GTT REMAINS INFUSING. RESTRAINTS TAKEN OFF THIS SHIFT DUE TO UNRESPONSIVENESS/NO THREAT OF EXTUBATING SELF. HGB 6.1, ORDER RECEIVED FOR 1 UNIT PRBC'S, RECHECK H & H AFTER TRANSFUSION IS COMPLETE. TURNED Q2H TO MAINTAIN SKIN INTEGRITY. WILL CONTINUE TO MONITOR.
--- NOTE | 2018-09-14 10:21 | CON ---
[address] [address] CONSULTATION Name: LYUDMILA KOVACS Room: [address] IN .R.#: [id number] Admission: 09/08/18 Attend Phys: Alireza Ma MD Discharge: Date of : 54 Report #: [id number] THIS REPORT FOR: //name// CC: FAM unknown Alireza Ma DATE OF SERVICE: 09/13/2018 HISTORY OF PRESENT ILLNESS: The patient is a 68-year-old male who fell on . He lay on the floor, unable to get up. His neighbor finally heard him and he was brought to the Emergency Room on 09/08/2018. The patient was basically on the floor for 4-5 days. The patient, when he came to the Emergency Room, was complaining of bilateral hip pain. A CT scan of the pelvis demonstrated no acute abnormality. Since that time, the patient developed rhabdomyolysis. He has been seen by Cardiology and has a known history of coronary artery disease and ischemic cardiomyopathy. At this moment, the patient is on Levophed. The patient has not been able to come off the drip without a significant drop in blood pressure. When he was seen by Cardiology, he was given IV Lasix for diuresis because of the decompensated cardiomyopathy. The patient also had an elevated proBNP at that time. The patient has also been seen by Nephrology. The patient had a history of chronic kidney disease stage 3 prior to this event. His kidney functions have remained stable with a GFR anywhere between 25 and 30. There is concern because the patient does not appear to be waking up as he should. He had a CT scan of the head on admission and this was unremarkable. PAST MEDICAL HISTORY: Kidney disease, pancreatitis, ischemic cardiomyopathy, coronary artery disease, diabetes. PAST SURGICAL HISTORY: Pacemaker/defibrillator placement. MEDICATIONS: Amiodarone 200 mg daily, erythropoietin, famotidine 20 mg b.i.d., fentanyl drip, Versed drip, hydrocortisone 100 mg q. 8 hours, sliding scale insulin, iron infusions, levothyroxine 25 mcg daily, piperacillin, vitamin, thiamine 100 mg daily, vancomycin. ALLERGIES: None. PHYSICAL EXAMINATION: VITAL SIGNS: Temperature 36.7, pulse rate 87, respiratory rate 24 on the ventilator, blood pressure 97/49, bedside pulse oximetry 100% on the ventilator. LABORATORY DATA: White blood cell count 16.7, hemoglobin 7.7, hematocrit 26.2, platelet count 142,000. INR 1.1. Urinalysis 1+ protein, 1+ ketones, 3+ blood, [place] [address] CONSULTATION Name: LYUDMILA KOVACS Ivana Room: [address] IN ..#: [id number] Admission: 09/08/18 Attend Phys: Alireza Ma MD Discharge: Date of : 54 Report #: [id number] 1+ bilirubin, Ictotest positive. Chemistry: Sodium 143, potassium 4.6, chloride 111, carbon dioxide 22, BUN 55, creatinine 2.5, glucose 137. Lactic acid 1.5, calcium 7.1, phosphorus 2, magnesium 2.7, total bilirubin 1.6, GGT 253, AST 54, ALT 61, alkaline phosphatase 206. Ammonia level 16. B12 is 1904. Folate 13.6. TSH 22, free T4 is 0.7, free T3 is 1.6. Toxicology negative. NEUROLOGIC: The patient has irregular pupils, the right is slightly larger than the left, but both are minimally reactive to light. Corneal reflexes are absent. Oculocephalic reflex is absent. There are no spontaneous movements of the extremities. This examination was done while the patient was on Versed and fentanyl. The medications were held and approximately 15 minutes later, there was no improvement in the patient's mentation. IMPRESSION: This patient is encephalopathic. I have asked the nurse to try to discontinue the sedation. This is the only way we will know what his underlying mental status is. I have ordered an EEG for tomorrow morning and as long as we can keep the patient off sedation or at least turn the sedation off an hour prior to the EEG then we should have some idea what is going on. A repeat CT scan of the head may also be helpful as long as the patient is stable. I thank you for your kind referral of the patient and will continue to follow him with you. <ELECTRONICALLY SIGNED> By: Evy Silva DO 09/14/18 1021 1633 [id number] Silva DO /nt
[2018-09-14 10:39] LABS: BE -7.4 mmol/L (-2 to +3); HCO3 17.5 mmol/L (22.0-26.0); PCO2 32.2 mmHg (35.0-45.0); PO2 76.4 mmHg (75.0-100.0); pH 7.352 (7.340-7.450)
--- NOTE | 2018-09-14 14:09 | NUR ---
re: Pharmacy to manage TPN Orders given for pharmacy to dose TPN per Dr. Foley. Patient has respiratory failure and history of pancreatitis. Per calculations used actual body weight 78 kg with a stress factor of 1.3. Note mentions HORTENCIA with unknown cause so will adjust protein g/kg/day need. Protein= 78 g/24 hours, CHO= 303.4 g/24 hours, and fats= 82.2 g/24 hours. The TPN was adjusted to decrease the magnesium sulfate to 6 mEq/L BMP showed magnesium as high. Day 1 of TPN will be 30 mL/hr and then if tolerated can increase on day 2 to 54 mL/hr. Thank you for this consult. Pharmacy will continue to follow and monitor.
[2018-09-14 15:35] LABS: HEMATOCRIT 28.2 % (42.0-52.0); MCH 24.5 pg (26.0-34.0); MCHC 31.1 g/dL (28.0-37.0); MCV 78.9 fL (80.0-100.0); MPV 8.9 fl. (7.2-11.1); RBC 3.58 mil/uL (4.50-6.00); RDW-CV 21.2 % (10.5-14.5); WBC 17.7 thou/uL (4.0-11.0)
[2018-09-14 15:40] LABS: HEMOGLOBIN 8.8 gm/dL (14.0-18.0)
--- NOTE | 2018-09-14 16:29 | NUR ---
ASSESSMENT CHARTED. AFEBRILE. PT STILL ON VENTILATOR. NO SEDATION AT THIS TIME. TITRATED LEVO OFF FOR NOW. TUBE FEEDINGS HELD AND TPN STARTED. GI CONSULTED AND SAW PT. GI PLANS ON EGD AND COLONOSCOPY TOMORROW. PT RECIEVED 2 UNITS OF BLOOD AND HGB IS NOW 8.8. LOW OUTPUT. PT REQUIRES MORE O2 ON VENT THROUGHOUT DAY. DESATS AND MAINTAINS IN THE 80'S UNTIL O2 TURNED UP TO 60%. WILL CONTINUE TO MONITOR.
[2018-09-15] VITALS (19 sets, daily range): BP systolic 93–148; BP diastolic 39–68
[2018-09-15 04:33] LABS: HEMATOCRIT 23.2 % (42.0-52.0); HEMOGLOBIN 7.3 gm/dL (14.0-18.0); MCH 25.1 pg (26.0-34.0); MCHC 31.5 g/dL (28.0-37.0); MCV 79.5 fL (80.0-100.0); MPV 8.9 fl. (7.2-11.1); NUCLEATED RBCS 3 /100WBC; PLATELET COUNT* 90 thou/uL (150-400); RBC 2.92 mil/uL (4.50-6.00); RDW-CV 20.7 % (10.5-14.5)
[2018-09-15 04:56] LABS: ALBUMIN 1.7 g/dL (3.4-5.0); CALCIUM 6.8 mg/dL (8.5-10.1); CREATININE 3.7 mg/dL (0.6-1.3); MAGNESIUM 2.6 mg/dL (1.8-2.4); POTASSIUM 4.6 mmol/L (3.5-5.1); TOTAL BILIRUBIN 1.8 mg/dL (<0.1-1.0); TOTAL PROTEIN 4.9 g/dL (6.4-8.2)
[2018-09-15 05:47] LABS: ABSOLUTE MONOCYTES 0.2 thou/uL (0.0-1.2); ABSOLUTE NEUTROPHILS 15.8 thou/uL (1.6-8.1); HYPOCHROMASIA 2+; PLATELET ESTIMATE DECREASED
[2018-09-15 05:48] LABS: ANISOCYTOSIS 1+; OVALOCYTES Occasional; POIKILOCYTOSIS 1+
--- NOTE | 2018-09-15 06:36 | NUR ---
ASSUMED CARE OF PT AT 1900 PT INTUBATED AND NON RESPONSIVE. TURNED AND POSITIONED SUCTIONED AND ORAL CARE Q2H. VS AND ASSESSMENT AT PTS CURRENT BASELINE.PT NSR ON THE MONITOR WILL CONTINUE PLAN OF CARE.
[2018-09-15 09:14] LABS: BE -9.1 mmol/L (-2 to +3); HCO3 17.5 mmol/L (22.0-26.0); PCO2 40.8 mmHg (35.0-45.0)
[2018-09-15 09:16] LABS: PO2 179.7 mmHg (75.0-100.0)
--- NOTE | 2018-09-15 12:59 | NUR ---
RE: PHARMACY VANCOMYCIN DOSING. NOTE VANCOMYCIN LEVEL OF 29. WILL CONTINUE TO HOLD VANCOMYCIN FOR 24 HRS AND DRAW REPEAT LEVEL. WILL FOLLOW. THANK YOU.
--- NOTE | 2018-09-15 13:48 | NUR ---
PATIENT AGONAL BREATHING ON THE VENTILATOR THIS SHIFT, NO SEDATION OR RESTRAINTS AND NO RESPONSE FROM PATIENT EVEN TO PAINFUL STIMULI. DR GRIGSBY DOES NOT THINK PATIENT WILL BENEFIT FROM DIALYSIS AT THIS POINT. DR RAYGOZA CALLED SISTER AND SHE IS ON HER WAY FROM [place]. CONTINUE TO SUPPORT PATIENT UNTIL SISTER ARRIVES AND CAN SEE THE PATIENT. REMAINS FULL CODE. TPN D/C, FLUIDS ADDED, PROTONIX GTT ADDED WELL. EGD AND COLONOSCOPY ON HOLD DUE TO PATIENT CONDITION
--- NOTE | 2018-09-15 14:12 | NUR ---
WOUND NURSE: PATIENT SEEN TO ADDRESS NEW SKIN LESIONS PRESENT ON RIGHT BUTTOCK AND THIGH. PRESENTS SMALL MACULAR REDDENED NONBLANCHEABLE CLOSED LESIONS. PLAN TO LEAVE OPEN TO AIR LONG THESE REMAIN INTACT. RIGHT HIP WITH LARGE OPEN LESION IS DRAINING SMALL AMOUNT OF CLEAR YELLOW DRAINAGE. THERE IS NO PERIWOUND REDNESS, RARMTH, OR INDURATION. PLAN TO CONTINUE WITH CURRENT PLAN OF CARE CONCERNING THIS SITE USING A SILVER FOAM.
--- NOTE | 2018-09-15 16:59 | NUR ---
PATIENT NOT PROGRESSING WELL TOWARDS GOALS. CONTINUES OT AGONAL BREATHE ON THE VENTILATOR. NO SEDATION OR RESTRAINTS AT THIS TIME. SISTER SHOULD BE HERE IN THE NEXT 24 HOURS FROM [place] TO HELP MAKE DECISIONS. NO APPARNET PAIN. BED IN LOWEST POSITION, HARP REPAIRER IN PLACE.
[2018-09-16] VITALS (21 sets, daily range): BP systolic 82–130; BP diastolic 34–63
[2018-09-16 05:46] LABS: HEMATOCRIT 23.5 % (42.0-52.0); HEMOGLOBIN 7.4 gm/dL (14.0-18.0); MCH 24.8 pg (26.0-34.0); MCHC 31.7 g/dL (28.0-37.0); MCV 78.4 fL (80.0-100.0); MPV 8.5 fl. (7.2-11.1); RDW-CV 21.8 % (10.5-14.5); WBC 16.2 thou/uL (4.0-11.0)
[2018-09-16 05:50] LABS: BE -7.1 mmol/L (-2 to +3); HCO3 17.5 mmol/L (22.0-26.0); pH 7.369 (7.340-7.450)
[2018-09-16 05:53] LABS: ALBUMIN 2.2 g/dL (3.4-5.0); CALCIUM 7.6 mg/dL (8.5-10.1); TOTAL BILIRUBIN 2.1 mg/dL (<0.1-1.0); TOTAL PROTEIN 5.5 g/dL (6.4-8.2)
[2018-09-16 05:55] LABS: CREATININE 4.8 mg/dL (0.6-1.3)
--- NOTE | 2018-09-16 07:34 | NUR ---
STABLE ON VENT. BP DROPPED IN THE NIGHT, MAP <65. LEVOPHED RESTARTED AND TITRATED FOR MAP >65. COMPLETE BED BATH GIVEN, HAIR SHAMPOOED. PT HAS BEEN TURNED Q2HR THROUGHOUT THE SHIFT.
--- NOTE | 2018-09-16 11:06 | CON ---
[address] [address] CONSULTATION Name: LYUDMILA KOVACS Room: [address] IN M.R.#: [id number] Admission: 09/08/18 Attend Phys: Alireza Ma MD Discharge: Date of : 54 Report #: [id number] THIS REPORT FOR: //name// CC: FAM unknown Alireza Ma HISTORY OF PRESENT ILLNESS: This is a 68-year-old male with prior history of alcohol abuse, CHF, chronic pancreatitis who was brought in to [facility] ER after he was found on the floor at his home. At the time of presentation, the patient was somnolent and altered. The patient was brought to the hospital on 09/08/2018. Over the course of the hospitalization, the patient had to be intubated and was diagnosed with pulmonary edema, acute hypoxic respiratory failure, rhabdomyolysis, HORTENCIA, dehydration and shock. The patient is also being presumptively treated for aspiration pneumonia. The GI Service has been consulted for evaluation of an acute drop in hemoglobin. The patient has been receiving tube feeds via a nasogastric tube and no significant residuals were noted. The patient has not had a bowel movement in over 24 hours. There has been no obvious hematemesis or coffee ground emesis. There is no prior noted history of upper GI endoscopies. PAST MEDICAL HISTORY: As mentioned above, the patient has a prior history of alcohol abuse, COPD, CHF, chronic pancreatitis. PAST SURGICAL HISTORY: The patient had a pacemaker defibrillator placed. SOCIAL HISTORY: The patient has a 20-odbm-hmct smoking history, but appears to have quit smoking and uses alcohol on a daily basis. FAMILY HISTORY: Unable to obtain family history due to the patient's mental status. REVIEW OF SYSTEMS: Unable to obtain. PHYSICAL EXAMINATION: VITAL SIGNS: Temperature 36.6, pulse rate 76, respirations 24, blood pressure 104/46, pulse ox 100% on 40% FiO2. GENERAL: The patient is sedated and intubated. HEENT: Pupils are round and reactive. There is no scleral icterus. The patient is able to withdraw to pain. CARDIOVASCULAR: Irregularly irregular. LUNGS: Coarse bilateral rales detected. ABDOMEN: Soft. There is no distention, guarding or rigidity. EXTREMITIES: Appear cold and clammy. NEUROLOGIC: Unable to assess his neurological status due to sedation. LABORATORY DATA: Sodium 134, potassium 4.1, chloride 102, bicarbonate 21, BUN 68, creatinine 3.2, total bilirubin 1.3, AST 100, ALT 79, [place] [address] CONSULTATION Name: LYUDMILA KOAVCS Room: [address] IN [facility]#: [id number] Admission: 09/08/18 Attend Phys: Alireza Ma MD Discharge: Date of : 54 Report #: [id number] 188. Lipase on presentation 355. Hematocrit 17.7, hemoglobin dropped from a baseline of 7.7 to 6.1, MCV 78.9, platelet count 110. ASSESSMENT AND PLAN: This is a 68-year-old male with past medical history of alcohol abuse, chronic pancreatitis who presented with altered mental status and subsequently was found to have septic shock, acute kidney injury, rhabdomyolysis. GI Service has been consulted for evaluation of an acute drop in hemoglobin. There has been no active manifestation of GI bleed; however, the patient does appear to have cirrhosis as manifested in low platelet count. 1. Acute blood loss anemia. 2. Alcohol abuse. 3. Possible cirrhosis. Keep the patient n.p.o. after midnight and we will plan for endoscopy tomorrow. PPI drip is recommended. Give the patient's albumin 25 grams b.i.d. and this may assist in keeping his oncotic pressure up and consider placing the patient on lactulose if there is no overt evidence of GI bleeding tomorrow. About 30 minutes were spent reviewing the patient's history and chart and performing physical examination and formulating a plan of care. <ELECTRONICALLY SIGNED> By: Da Gage MD 09/16/18 1106 1615 25Da Gage MD /nt
--- NOTE | 2018-09-16 12:00 | NUR ---
PATIENT CONTINUES TO AGONAL BREATHE ON THE VENTILATOR. PRESSURES REMAIN UP AND DOWN, OFF LEVOPHED FOR NOW. ART LINE IN PLACE. CVP LINE CLOTTED. D/C. SR WITH 1ST DEGREE. REMAINS ON 60% FIO2 DUE TO FREQUENT DESATTING. COPIOUS ORAL SECRETIONS. TUBE FEEDING RESUMED THIS SHIFT AND TOLERATING. BED IN LOWEST POSITION, SUPERVISOR MOLD YARD IN PLACE.
--- NOTE | 2018-09-16 12:11 | NUR ---
ASSUMED CARE OF PATIENT. REPORT RECEIVED FROM AMY DUPONT;AGREE WITH CURRENT ASSESSMENT
--- NOTE | 2018-09-16 13:02 | NUR ---
RE: pharmacy vancomycin dosing. Note vancomycin level of 25. Will continue to hold dose & draw repeat level in 24 hr. Will follow. thank you
--- NOTE | 2018-09-16 14:10 | NUR ---
PT'S SISTER CAIT IS HERE FROM [place], SHE HAS TALKED WITH DR. RAYGOZA AND WITH DR. DOMINGO BY PHONE. SHE SAID PT HAS ALWAYS SAID THAT HE NEVER WANTED TO BE IN A ASSISTED, HE WAS CONCERNED ABOUT HIS POOR BREATHING AND AFRAID HE WOULD STOP BREATHING IN HIS SLEEP. SISTER SAID PT HASN'T HAD A GOOD QUALITY OF LIFE FOR AWHILE AND SHE WOULDN'T WANT HIM TO BE SUFFERING. PT HAS ANOTHER SISTER WHO LIVES IN [place] WHO WILL BE HERE TOMORROW. PT HAS A DAUGHTER BUT HAS NOT HAD A RELATIONSHIP WITH HER FOR A LONG TIME. PT'S PARENTS ARE BURIED AT [address] [facility], SHE SAID HER PARENTS' FUNERALS WERE WITH [facility]. PT LIVES IN A HOUSE THAT IS IN THE FAMILY [place], SISTER DOES NOT HAVE A JUSTICE BUT THINKS A NEIGHBOR DOES. CHECKED WITH SECURITY AND WE DO NOT HAVE HOUSE KEYS WITH HIS BELONGINGS. SISTER SAID THAT THERE ARE OTHER FAMILY MEMBERS THAT LIVE IN THE AREA, AUNTS AND COUSINS, SO SHE WILL STAY WITH ONE OF THEM WHILE SHE IS IN TOWN. SISTER HAS MY PHONE NUMBER AND THE PHONE NUMBER TO THE ICU. WILL TALK WITH BOTH SISTERS TOMORROW ABOUT CONTINUED PLAN OF CARE.
--- NOTE | 2018-09-16 14:28 | NUR ---
SISTER OF PATIENT,KATHRINE, HERE AND SPOKE WITH TRUCK DRIVER RUBBISH COLLECTOR, DR RAYGOZA, AND DR DOMINGO. PATIENT IS NOW DNR
--- NOTE | 2018-09-16 15:46 | NUR ---
WOUND CARE NOTE: PATIENT PRESENTS WITH EVOLVING DEEP TISSUE INJURIES TO COCCYX, LEFT BUTTOCK AND UPPER THIGH AND LEFT HIP. THESE ARE ALL INTACT NO OPENINGS NOTED. RECOMMEND LEAVING OPEN TO AIR AT THIS TIME. USE BARRIER OINTMENT PRN INCONTINECE. TURN Q2 HOURS. WOULD RECOMMEND A LOW AIR LOSS MATTRESS.
--- NOTE | 2018-09-16 17:15 | NUR ---
MINIMAL PROGRESSION TOWARDS GOALS. BREATHES ASYNCHRONOUSLY WITH VENTILATOR. EEG DONE. SISTER CAME TO VISIT AND SPOKE WITH PHYSICIANS. PT IS NOW DNR. PLAN IS TO MAKE DECISION TOMORROW WHENOTHER SISTER ARRIVES.
[2018-09-17] VITALS (16 sets, daily range): BP systolic 91–131; BP diastolic 40–69
[2018-09-17 03:48] LABS: HEMATOCRIT 22.9 % (42.0-52.0); HEMOGLOBIN 7.5 gm/dL (14.0-18.0); MCH 25.3 pg (26.0-34.0); MCHC 32.6 g/dL (28.0-37.0); MCV 77.7 fL (80.0-100.0); MPV 8.3 fl. (7.2-11.1); RBC 2.95 mil/uL (4.50-6.00); RDW-CV 22.6 % (10.5-14.5)
[2018-09-17 04:12] LABS: ALBUMIN 2.6 g/dL (3.4-5.0); CALCIUM 7.7 mg/dL (8.5-10.1); CREATININE 5.2 mg/dL (0.6-1.3); POTASSIUM 5.2 mmol/L (3.5-5.1); TOTAL BILIRUBIN 2.4 mg/dL (<0.1-1.0); TOTAL PROTEIN 5.8 g/dL (6.4-8.2)
[2018-09-17 06:01] LABS: BE -4.5 mmol/L (-2 to +3); HCO3 19.7 mmol/L (22.0-26.0); PCO2 31.9 mmHg (35.0-45.0); pH 7.408 (7.340-7.450)
[2018-09-17 06:09] LABS: PO2 145.3 mmHg (75.0-100.0)
--- NOTE | 2018-09-17 06:50 | NUR ---
STABLE ON VENT. LEVOPHED GTT TITRATED FOR MAP >65. REMAINS MINIMALLY RESPONSIVE, NO PURPOSEFULLY MOVEMENT. COUGH REFLEX INTACT. TOLERATING TUBE FEED AT GOAL RATE OF 40ML/HR, HIGHEST RESIDUAL 20ML. COMPLETE BED BATH GIVEN, HAIR SHAMPOOED. PT HAS BEEN TURNED Q2HR THROUGHOUT THE SHIFT.
--- NOTE | 2018-09-17 10:52 | NUR ---
CONTINUE TO FOLLOW, PT REMAINS ON VENT. PER KIAH VYAS FAMILY IS AWAITING ANOTHER FAMILY MEMBER TO ARRIVE FROM OUT OF TOWN. CM WILL FOLLOW AND PROVIDE SUPPORT NEEDED
--- NOTE | 2018-09-17 12:36 | NUR ---
PT OPENING EYES. PT NOT FOLLOWING COMMANDS. VSS. TEMP 96.4. 2 WARM BLANKET PLACED ON PT. PT 97.0. LEVOPHED GTT TITRATED PER PROTOCOL. PT OFF SEDATION. PT IS NOT IN RESTRAINTS. FAMILY TO TALK TO DR RAYGOZA ABOUT PLAN OF CARE. WILL CONTINUE PLAN OF CARE.
--- NOTE | 2018-09-17 13:32 | NUR ---
FAMILY ARRIVED AND SPOKE TO DR RAYGOZA. PT MADE COMFORT CARE.
--- NOTE | 2018-09-17 14:01 | NUR ---
WILL DISCHARGE PT. FROM [facility] AT THIS TIME. [facility]T. WAS UNABLE TO EVALUATE PT. DUE TO CHANGE IN MEDICAL STATUS WITH INABILITY TO PARTICIPATE SINCE 09/10. PT. HAS BEEN JUST MADE COMFORT CARE. HE HAS BEEN HAVING AGONAL BREATHING WHILE ON THE VENT PER THE CHART.
--- NOTE | 2018-09-18 17:23 | EEG ---
[address] [address] EEG STUDY REPORT Name: FERMÍNLYUDMILA Room: [address] IN M.R.#: [id number] Admission: 09/08/18 Attend Phys: Alireza Ma MD Discharge: 09/17/18 Date of : 54 Report #: [id number] THIS REPORT FOR: //name// CC: FAM unknown Alireza Ma PROCEDURE: EEG. SUBJECTIVE: The patient is a 68-year-old male who has been off sedation for at least 12 hours. He has some spontaneous movements of the extremities. DESCRIPTION: The record consists of symmetrical low-amplitude 5 Hz activity. No focal abnormalities or epileptiform discharges are noted. Photic stimulation was non-activating. No change in state occurred during the recording. No electrographic seizures were noted. IMPRESSION: This is an abnormal adult record, consistent with severe diffuse cerebral dysfunction. There is no evidence of subclinical seizures. <ELECTRONICALLY SIGNED> By: Evy Silva DO 09/18/18 1723 [id number] Silva DO /nt
--- NOTE | 2018-09-23 14:49 | EEG ---
[address] [address] EEG STUDY REPORT Name: FERMÍNLYUDMILA Room: [address] IN M.R.#: [id number] Admission: 09/08/18 Attend Phys: Alireza Ma MD Discharge: 09/17/18 Date of : 54 Report #: [id number] THIS REPORT FOR: //name// CC: FAM unknown Alireza Ma DATE OF SERVICE: 09/16/2018 This patient is being evaluated for encephalopathy. EEG was done by placing the electrodes by standard 10-20 system of electrode placement. Both referential and sequential montages were used for recording. Background activity is very low voltage. It appeared to be about 4-5 Hz and may be 5 microvolt. Lot of artifact is present. Photic stimulation is unremarkable. IMPRESSION: This is an abnormal EEG consistent with a diagnosis of generalized encephalopathy. <ELECTRONICALLY SIGNED> By: Kevin Prince MD 09/23/18 [id number] Prince MD /nt
== END 2018-09-17 14:40 | DRG 870 ==
LOC: M.ERS 17:34 → M.ICU 22:59 → M.TBA-ER 22:59 → M.ICU 09-09 00:15
PROVIDERS: Emergency Medicine; Family Medicine; Internal Medicine; Internal Medicine Nephrology; Internal Medicine Pulmonary Disease; Personal Emergency Response Attendant; ADMIT Internal Medicine
PROC: 5A09457 Assistance with Respiratory Ventilation, 24-96 Consecutive Hours, Continuous Positive Airway Pressure (ICD-10-PCS; principal; 2018-09-09)
PROC: 02HV33Z Insertion of Infusion Device into Superior Vena Cava, Percutaneous Approach (ICD-10-PCS; 2018-09-10)
PROC: 0BH17EZ Insertion of Endotracheal Airway into Trachea, Via Natural or Artificial Opening (ICD-10-PCS; 2018-09-10)
PROC: 03HY32Z Insertion of Monitoring Device into Upper Artery, Percutaneous Approach (ICD-10-PCS; 2018-09-10)
PROC: 5A1955Z Respiratory Ventilation, Greater than 96 Consecutive Hours (ICD-10-PCS; 2018-09-10)
PROC: B548ZZA Ultrasonography of Superior Vena Cava, Guidance (ICD-10-PCS; 2018-09-10)
PROC: 30243N1 Transfusion of Nonautologous Red Blood Cells into Central Vein, Percutaneous Approach (ICD-10-PCS; 2018-09-14)
DX: A41.9 Sepsis, unspecified organism (principal); J69.0 Pneumonitis due to inhalation of food and vomit; G93.41 Metabolic encephalopathy; I50.23 Acute on chronic systolic (congestive) heart failure; J96.01 Acute respiratory failure with hypoxia; N17.9 Acute kidney failure, unspecified; I23.6 Thrombosis of atrium, auricular appendage, and ventricle as current complications following acute myocardial infarction; E87.0 Hyperosmolality and hypernatremia; M62.82 Rhabdomyolysis; G93.1 Anoxic brain damage, not elsewhere classified; D68.9 Coagulation defect, unspecified; E46 Unspecified protein-calorie malnutrition; K86.1 Other chronic pancreatitis; D62 Acute posthemorrhagic anemia; K72.90 Hepatic failure, unspecified without coma; R57.0 Cardiogenic shock; E87.8 Other disorders of electrolyte and fluid balance, not elsewhere classified; E86.0 Dehydration; E88.09 Other disorders of plasma-protein metabolism, not elsewhere classified; D50.9 Iron deficiency anemia, unspecified; I25.5 Ischemic cardiomyopathy; E11.9 Type 2 diabetes mellitus without complications; E87.70 Fluid overload, unspecified; F10.10 Alcohol abuse, uncomplicated; N18.3 Chronic kidney disease, stage 3 (moderate); S70.01XA Contusion of right hip, initial encounter; S50.01XA Contusion of right elbow, initial encounter; M25.461 Effusion, right knee; L89.219 Pressure ulcer of right hip, unspecified stage; E83.39 Other disorders of phosphorus metabolism; E03.9 Hypothyroidism, unspecified; J44.9 Chronic obstructive pulmonary disease, unspecified; I25.10 Atherosclerotic heart disease of native coronary artery without angina pectoris; W06.XXXA Fall from bed, initial encounter; Z95.810 Presence of automatic (implantable) cardiac defibrillator; Z79.2 Long term (current) use of antibiotics; Z79.01 Long term (current) use of anticoagulants; Z79.82 Long term (current) use of aspirin; Z79.899 Other long term (current) drug therapy; Z68.26 Body mass index [BMI] 26.0-26.9, adult; Z87.891 Personal history of nicotine dependence; Y93.89 Activity, other specified; Y92.032 Bedroom in apartment as the place of occurrence of the external cause; Y99.8 Other external cause status